=== PATIENT | female | born 1930 | race Caucasian/White ===

== ENCOUNTER 2017-12-21 14:31 | Inpatient (IN) | payer OTHER ==
[~2017-12-21] VITALS: Ht 167.6 cm; Wt 77.2 kg
[~2017-12-21 14:31] MED LIST: BACOO OS; HIB240 TP
[2017-12-21 16:15] LABS: BASOPHIL % 0.2 % (0-2); PLATELET COUNT 353 x10^3mcL (130-400)
[2017-12-21 16:16] LABS: RED CELL DISTRIBUTION WIDTH 19.8 % (11.5-14.5)
[2017-12-21 16:27] LABS: ALKALINE PHOSPHATASE 133 U/L (46-116); ALT/SGPT 96 U/L (14-59); AST/SGOT 50 U/L (15-37); BILIRUBIN TOTAL 0.98 mg/dL (0.20-1.00); CALCIUM 8.5 mg/dL (8.5-10.1); CARBON DIOXIDE 14.1 mmol/L (21-32); CHLORIDE SERUM 107 mmol/L (98-107); GLUCOSE SERUM 139 mg/dL (74-106); MAGNESIUM 2.8 mg/dL (1.8-2.4); PHOSPHOROUS 7.6 mg/dL (2.5-4.9); POTASSIUM SERUM 4.5 mmol/L (3.5-5.1); SODIUM SERUM 141 mmol/L (136-145); TOTAL PROTEIN, SERUM 7.1 g/dL (6.4-8.2)
[2017-12-21 16:28] LABS: ALBUMIN 2.8 g/dL (3.4-5.0); CHOLESTEROL 113 mg/dL (<200); HDL CHOLESTEROL 27 mg/dL (40-60)
[2017-12-21 16:33] LABS: CREATININE SERUM 4.3 mg/dL (0.6-1.0)
[2017-12-21 16:47] LABS: microscopic required? NO
[2017-12-21] MEDS ORDERED: NOR10T (16:47)
[2017-12-21] MEDS ORDERED: ZOF4 (16:47)
[2017-12-21 17:07] LABS: CHOLESTEROL/HDL RATIO 4.3
[2017-12-21 17:13] LABS: urine erythrocyte NEGATIVE (NEGATIVE)
[2017-12-21 17:15] LABS: T3 TOTAL 0.27 ng/mL
[2017-12-21 17:16] LABS: FREE T4 0.69 ng/dL (0.76-1.46)
[2017-12-21 17:17] LABS: FREE THYROXINE INDEX 1.1 ug/dL (1.4-4.5); T4(THYROXINE) 2.8 ug/dL (4.7-13.3)
[2017-12-21 18:29] VITALS: BP 143/85
[2017-12-21 19:20] VITALS: BP 117/75
[2017-12-21] MEDS ORDERED: ATIVAN0.5 M1 PO (19:34)
[2017-12-21] MEDS ORDERED: LASIX20 MG PO (19:34)
[2017-12-21] MEDS ORDERED: SYNTHROID0.075 MG PO (19:35)
[2017-12-21] MEDS ORDERED: LIPITOR20 MG PO (19:35)
[2017-12-21] MEDS ORDERED: LEXAPRO10 MG PO (19:35)
[2017-12-21 20:20] VITALS: BP 117/75
[2017-12-21 23:47] VITALS: BP 114/73
[2017-12-22 00:56] LABS: CARBON DIOXIDE 17.6 mmol/L (21-32); CHLORIDE SERUM 108 mmol/L (98-107); GLUCOSE SERUM 124 mg/dL (74-106); PHOSPHOROUS 7.1 mg/dL (2.5-4.9); SODIUM SERUM 142 mmol/L (136-145)
[2017-12-22 03:51] VITALS: BP 93/68
[2017-12-22 06:06] LABS: BASOPHIL % 0.4 % (0-2); PLATELET COUNT 275 x10^3mcL (130-400)
[2017-12-22 06:10] LABS: RED CELL DISTRIBUTION WIDTH 19.8 % (11.5-14.5)
[2017-12-22 06:15] LABS: CALCIUM 8.1 mg/dL (8.5-10.1); CARBON DIOXIDE 16.1 mmol/L (21-32); CHLORIDE SERUM 108 mmol/L (98-107); CREATININE SERUM 3.7 mg/dL (0.6-1.0); GLUCOSE SERUM 92 mg/dL (74-106); MAGNESIUM 2.4 mg/dL (1.8-2.4); PHOSPHOROUS 6.8 mg/dL (2.5-4.9); POTASSIUM SERUM 4.9 mmol/L (3.5-5.1); SODIUM SERUM 134 mmol/L (136-145)
[2017-12-22 07:30] VITALS: BP 94/60
[2017-12-22 12:00] VITALS: BP 132/77
[2017-12-22 15:45] VITALS: BP 126/74
[2017-12-22 19:15] VITALS: BP 90/48
[2017-12-22 23:10] VITALS: BP 102/64
[2017-12-23 03:16] VITALS: BP 99/56
[2017-12-23 05:46] LABS: BASOPHIL % 0.2 % (0-2); PLATELET COUNT 247 x10^3mcL (130-400)
[2017-12-23 05:47] LABS: RED CELL DISTRIBUTION WIDTH 19.8 % (11.5-14.5)
[2017-12-23 06:03] LABS: CALCIUM 8.1 mg/dL (8.5-10.1); CARBON DIOXIDE 16.9 mmol/L (21-32); CHLORIDE SERUM 107 mmol/L (98-107); CREATININE SERUM 3.4 mg/dL (0.6-1.0); GLUCOSE SERUM 90 mg/dL (74-106); MAGNESIUM 2.5 mg/dL (1.8-2.4); PHOSPHOROUS 6.3 mg/dL (2.5-4.9); POTASSIUM SERUM 4.4 mmol/L (3.5-5.1); SODIUM SERUM 140 mmol/L (136-145)
[2017-12-23 08:00] VITALS: BP 108/65
[2017-12-23 11:58] VITALS: BP 107/67
[2017-12-23 15:59] VITALS: BP 113/81
[2017-12-23 20:00] VITALS: BP 93/56
[2017-12-24 00:07] VITALS: BP 99/69
[2017-12-24 04:00] VITALS: BP 111/67
[2017-12-24 05:39] LABS: BASOPHIL % 0.7 % (0-2); PLATELET COUNT 238 x10^3mcL (130-400)
[2017-12-24 05:40] LABS: RED CELL DISTRIBUTION WIDTH 19.9 % (11.5-14.5)
[2017-12-24 05:47] LABS: CALCIUM 8.3 mg/dL (8.5-10.1); CARBON DIOXIDE 17.7 mmol/L (21-32); CHLORIDE SERUM 106 mmol/L (98-107); GLUCOSE SERUM 81 mg/dL (74-106); MAGNESIUM 2.4 mg/dL (1.8-2.4); PHOSPHOROUS 5.5 mg/dL (2.5-4.9); POTASSIUM SERUM 5.5 mmol/L (3.5-5.1); SODIUM SERUM 138 mmol/L (136-145)
[2017-12-24 07:50] VITALS: BP 101/62
[2017-12-24 08:25] VITALS: Ht 167.6 cm; Wt 77.2 kg
[2017-12-24 11:47] VITALS: BP 108/67
[2017-12-24] MEDS ORDERED: LEVAQUIN750 MG PO (16:25)
[2017-12-24] MEDS ORDERED: LAC PO (16:26)
[2017-12-24] MEDS ORDERED: CLINDAMYCIN HC300 MG PO (16:26)
[2017-12-24] MEDS ORDERED: COR200 PO (16:27)
[2017-12-24] MEDS ORDERED: ELIQUIS2.5 MG PO (16:27)
[2017-12-24] MEDS ORDERED: DIG125 PO (16:28)
[2017-12-24] MEDS ORDERED: LOP50 PO ×2 (16:30→17:38)
[2017-12-24] MEDS ORDERED: XARELTO15 M1 PO (17:37)
[2017-12-24 17:38] VITALS: BP 104/54
[2017-12-24] MEDS ORDERED: KEFLEX250 M1 (17:38)
[2017-12-24] MEDS ORDERED: ATIVAN0.5 M1 (17:38)
== END 2017-12-24 18:24 | DRG 177 ==
LOC: ED 14:31 → IC 16:32 → DU 16:32 → IC 19:10
PROVIDERS: Emergency Medicine; Family Medicine
DX: J69.0 Pneumonitis due to inhalation of food and vomit (principal); I50.43 Acute on chronic combined systolic (congestive) and diastolic (congestive) heart failure; N17.0 Acute kidney failure with tubular necrosis; E43 Unspecified severe protein-calorie malnutrition; J96.01 Acute respiratory failure with hypoxia; J44.9 Chronic obstructive pulmonary disease, unspecified; R73.03 Prediabetes; I48.0 Paroxysmal atrial fibrillation; E78.5 Hyperlipidemia, unspecified; E83.41 Hypermagnesemia; E86.0 Dehydration; I34.0 Nonrheumatic mitral (valve) insufficiency; I36.1 Nonrheumatic tricuspid (valve) insufficiency; E03.9 Hypothyroidism, unspecified; E83.39 Other disorders of phosphorus metabolism; F32.9 Major depressive disorder, single episode, unspecified; R29.6 Repeated falls; Z99.81 Dependence on supplemental oxygen; Z68.27 Body mass index [BMI] 27.0-27.9, adult; Z85.3 Personal history of malignant neoplasm of breast; Z95.810 Presence of automatic (implantable) cardiac defibrillator
CPT/HCPCS: 36600; 83880; 84439; 97110-GP; 97116-GP; 97530-GP; J0282; J1644; J1940; J1956; J2270; J3490; J7030; J7040; J7620; Q0092

== ENCOUNTER 2019-03-23 03:56 | Inpatient (IN) | payer OTHER, MEDICAID ==
[~2019-03-23] VITALS: Ht 165.1 cm; Wt 71.0 kg
[~2019-03-23 03:56] MED LIST changes: +ATIVAN0.5 M1; +ATIVAN0.5 M1 PO; +CLINDAMYCIN HC300 MG PO; +COR200 PO; +DIG125 PO; +ELIQUIS2.5 MG PO; +KEFLEX250 M1; +LAC PO; +LASIX20 MG PO; +LEVAQUIN750 MG PO; +LEXAPRO10 MG PO; +LIPITOR20 MG PO; +LOP50 PO; +NOR10T; +SYNTHROID0.075 MG PO; +XARELTO15 M1 PO; +ZOF4
--- NOTE | 2019-03-23 04:01 | NUR ---
PT BIB [facility] FOR HOME WITH C/O SOB THAT STARTED APPROX 4 DAYS AGO. PER MEDICS PT O2 SAT ON SCENE IN THE LOW 80'S AND PT WAS STARTED ON 15L/MIN OF VIA NON-REBREATHER. PER MEDICS PT EKG SHOWED AFIB WITH RVR AT A RATE IN THE 150'S. MEDICS ALSO REPORT HYPOTENSION ON SCENE. UPON ARRIVAL TO ED PT AWAKE AND A/OX4. PT COMPLAINING OF A TIGHTNESS IN HER CHEST AND SOB. PT REPORTS A COUGH FOR APPROX 4 DAYS. PT DENIES FEVERS. PT LUNG SOUNDS CLEAR IN ALL PATEL WITH AUSCULATION. PT PLACED ON FULL CUT OUT MARKER. PT HYPOTENSIVE WITH A HR IN THE 150'S, PT IN AFIB. PT KEPT ON 15L/MIN OF O2 VIA NON-REBREATHER. MD MARLEY AT BEDSIDE FOR MSE.
--- NOTE | 2019-03-23 04:10 | NUR ---
ONE UNSUCCESSFUL IV START BY MYSELF MALINDA SUNSHINE, AND ONE UNSUCCESSFUL IV START BY MALINDA JENKINS.
--- NOTE | 2019-03-23 04:21 | NUR ---
MD MARLEY AT BEDSIDE TO INSERT CL, PT GAVE VERBAL OK TO INSERT CL. LAB AT BEDSIDE TO RECIEVE BLOOD DRAW.
--- NOTE | 2019-03-23 04:36 | NUR ---
PER MD MARLEY GIVE PT A 500ML BOLUS.
--- NOTE | 2019-03-23 04:46 | NUR ---
PT STRAIGHT CATH PER MD MARLEY, MALINDA PHILLIPS AT BEDSIDE TO ASSIT. PT TOERATED WELL.
[2019-03-23 04:53] LABS: PLATELET COUNT 395 x10^3mcL (130-400)
[2019-03-23 04:57] LABS: RED CELL DISTRIBUTION WIDTH 24.9 % (11.5-14.5)
--- NOTE | 2019-03-23 05:00 | NUR ---
PER MD MARLEY GIVE PT ANOTHER 500ML BOLUS FOR HER HYOPTENSION.
--- NOTE | 2019-03-23 05:02 | NUR ---
MD MARLEY AT BEDSIDE TO INFORM PT THAT WE NEED TO PREFORM SYNCRONIZED CARDIOVERSION TO STABLIZE HER VITAL SIGNS. PT REFUSING CARDIOVERSION AT THIS TIME STATING SHE HAS HAD IT DONE BEFORE AND IT HURTS.
[2019-03-23 05:05] LABS: MONOCYTE 3 % (0-7); SEGMENTED NEUTROPHILS 90 % (37-75)
[2019-03-23 05:08] LABS: acanthocyte (spur cell) 2+; rbc morphology (normal/abnorm) ABNORMAL (NORMAL)
[2019-03-23 05:09] LABS: PLATELET MORPHOLOGY PLATELETS NORMAL; schistocyte (helmet cell) 1+
[2019-03-23 05:16] LABS: ALKALINE PHOSPHATASE 142 U/L (46-116); ALT/SGPT 31 U/L (14-59); AST/SGOT 58 U/L (15-37); BILIRUBIN TOTAL 0.8 mg/dL (0.20-1.00); CALCIUM 7.2 mg/dL (8.5-10.1); CARBON DIOXIDE 15.7 mmol/L (21-32); CHLORIDE SERUM 101 mmol/L (98-107); GLUCOSE SERUM 106 mg/dL (74-106); POTASSIUM SERUM 4.1 mmol/L (3.5-5.1); SODIUM SERUM 138 mmol/L (136-145); TOTAL PROTEIN, SERUM 6.8 g/dL (6.4-8.2)
--- NOTE | 2019-03-23 05:20 | NUR ---
PT ACCEPTING CARDIOVERSION AT THIS TIME, MD MARLEY MADE AWARE. CRASH CART BROUGHT TO BEDSIDE AND PT PLACED ON MONITOR FOR CARDIOVERSION. PT A/O X4.
--- NOTE | 2019-03-23 05:27 | NUR ---
MD MARLEY AT BEDSIDE, SYNCRONIZED SHOCK DELIVERED AT THIS TIME AT 100J. PT RHYTHM RECORDED AND PLACED IN CHART. PT HR RANGING FROM 90'S TO 144'S.
[2019-03-23 05:28] LABS: ALBUMIN 2.3 g/dL (3.4-5.0)
[2019-03-23 05:29] LABS: CREATININE SERUM 6.2 mg/dL (0.6-1.0)
--- NOTE | 2019-03-23 06:10 | NUR ---
REPORT GIVEN TO NICHO PETTY TO ASSUME CARE OF PT.
--- NOTE | 2019-03-23 06:30 | NUR ---
PT TRANSFERRED FROM ER VIA GURNEY ACCOMPANIED BY RN AND EMT. PT TRANSFERRED TO ICU BED WITH FULL ASSIST. PLACED ON FULL CM WITH VITAL SIGNS: BP 129/42 MAP 89, TEMP 95.4 (RECTAL), HR 93, RR21, O2 SAT 92%. RECTAL TEMP AND GAYMAR PLACED. PT APPEARS LETHARGIC BUT EASILY AROUSABLE. ABLE TO FOLLOW COMMANDS. GEN WEAKNESS NOTED. PT IS A/O X4, SPEECH CLEAR AND APPROPRIATE BUT SLOW TO RESPOND. PT ON NON-REBREATHER 15LPM. CHEST RISE EQUAL AND SYMMETRICAL. R FEMORAL CVC IN PLACE. LEVOPHED INFUSING @ 6 MCG/MIN. LEVAQUIN INFUSING WITH 30ML LEFT. VANCO IV TO BE STARTED AFTER LEVAQUIN IS COMPLETE, ORDERED BY ER DR. MOLINA RELAY TO AM NURSE.
--- NOTE | 2019-03-23 07:15 | NUR ---
DR LONGORIA AT BEDSIDE TO ASSESS PATIENT. DR LONGORIA DISCUSSED POC AND CODE STATUS. PATIENT ALERT AND ORIENTED X 4. PATIENT STATED THAT SHE DOES NOT AGRESSIVE CARE AND WANTS TO REMAIN DNR STATUS. PATIENT'S BP AT THIS TIME 136/58, MAP 92. LEVOPHED TITRATED FROM 6MCG TO 3 MCG. WILL MONITOR PATIENT CLOSELY.
[2019-03-23 07:19] LABS: MAGNESIUM 2.4 mg/dL (1.8-2.4)
[2019-03-23 07:21] LABS: CHOLESTEROL/HDL RATIO 5.9
--- NOTE | 2019-03-23 07:21 | NUR ---
REPORT GIVEN TO RACHAEL PETTY TO ASSUME CARE.
--- NOTE | 2019-03-23 07:25 | NUR ---
THE PATIENT LETHARGIC, BUT ORIENTED TO PERSON, PLACE AND TIME WITH VERY SLOW SPEECH. PATIENT IS ABLE TO PROVIDE HISTORY AND MAKES NEEDS KNOWN. PATIENT IS ON NONREBREATHER MASK AND STATES HAVING EPISODES OF SHORTNESS OF BREATH. MILDLY LABORED BREATHING NOTED AT THIS TIME. PATIENT ALSO HAS SOME CONGESTED COUGH BUT NO SPUTUM NOTED. LEVOPHED DRIP AT 3MCG/MIN. IVF NS AT 100ML/HR. CVC TO RIGHT FEMORAL; 3 PORTS FLUSHED WELL. RECTAL TEMP VIA GAYMAR. WARM BLANKET COVERED THE PATIENT. CALL LIGHT WITHIN REACH. SIDE RAILS UP X3. BED IS AT LOWEST POSITION. ALARM IS ON.
[2019-03-23 07:27] LABS: microscopic required? NO
[2019-03-23 07:41] LABS: PHOSPHOROUS 9.2 mg/dL (2.5-4.9)
[2019-03-23 07:48] LABS: urine erythrocyte NEGATIVE (NEGATIVE)
[2019-03-23 07:54] LABS: T3 TOTAL 0.06 ng/mL
[2019-03-23 07:55] VITALS: BP 103/59
[2019-03-23 08:21] LABS: FREE T4 0.82 ng/dL (0.76-1.46)
[2019-03-23 08:59] LABS: FREE THYROXINE INDEX 1.5 ug/dL (1.4-4.5)
--- NOTE | 2019-03-23 09:40 | NUR ---
DR LOCO AND RESIDENTS AT BEDSIDE FOR MORNING ROUNDS. POC DISCUSSED BEDSIDE WITH PATIENT. ALL QUESTIONS AND CONCERNS ADDRESSED.
--- NOTE | 2019-03-23 11:50 | NUR ---
DR. BRADFORD IS AT BEDSIDE SEEING THE PATIENT.
--- NOTE | 2019-03-23 11:55 | NUR ---
WILLIS CATH INSERTED ORDERED; SCAN AMOUNT YELLOW URINE OUTPUT NOTED IN THE F/C TUBE. SWALLOW SCREEN IMPLEMENTED AT BEDSIDE: ICE CHIPS, JELLO, APPLESAUCE, PUDDING AND WATER. PATIENT DOES NOT DIFFICULTY SWALLOWING. DR. GONZALEZ WAS INFORMED.
[2019-03-23 12:10] VITALS: BP 103/57
[2019-03-23 13:01] VITALS: BP 103/57
--- NOTE | 2019-03-23 13:18 | NUR ---
DR. KEN WATSON IS AT BEDSIDE SEEING THE PATIENT.
--- NOTE | 2019-03-23 13:22 | NUR ---
DR WATSON AT BEDSIDE TO ASSESS PATIENT. POC DISCUSSED WITH PATIENT INCLUDING WHETHER PATIENT WANTED H.D. IF NECESSARY. PATIENT DECLINED HEMODIALYSIS AND AGREED TO MEDICATIONS ONLY TO IMPROVE RENAL FUNCTION. WILL ENDORSE TO PRIMARY RN KECIA.
--- NOTE | 2019-03-23 14:05 | NUR ---
THE BP 91/43 AND MAP 62; LEVOPHED IS TITRATED FROM 2MCG/MIN UP TO 3MCG/MIN.
[2019-03-23 16:00] VITALS: BP 99/58
--- NOTE | 2019-03-23 16:00 | NUR ---
THE PATIENT'S HEART RATES INCREASED UP TO 170S AND CHANGED TO SVT. DR. LONGORIA AND DR. GONZALEZ WERE NOTIFIED. AMIODARONE DRIP WAS ORDERED: AT 1550: AMIODARONE BOLUS 150MG IV ADMINISTERED TO THE PATIENT. AT 1600: AMIODARONE DRIP WAS INITIATED AT 1MG/MIN PER PROTOCOL.
--- NOTE | 2019-03-23 17:02 | NUR ---
BP 106/57 AND MAP 81; LEVOPHED IS TITRATED FROM 3MCG/MIN DOWN TO 2MCG/MIN.
--- NOTE | 2019-03-23 18:49 | NUR ---
ISOGEL MATTRESS SET UP FOR THE PATIENT. GOWN AND LINEN CHANGED. PATIENT HAS EPISODES OF SHORTNESS OF BREATH DURING THE SHIFT. PATIENT IS ON OXYGEN AT 2L/MIN VIA NASAL CANNULA WITH O2 SAT >95%. PATIENT DOES NOT TOLERATED WELL WITH MECHANICAL SOFT CHOPPED DIET DUE TO DECREASED APPETITE. AMIODARONE DRIP AT 1MG/MIN AND LEVPHED DRIP AT 2MCG/MIN. WILL ENDORSE CARE TO ONCOMING RN.
--- NOTE | 2019-03-23 19:07 | NUR ---
RECEIVED REPORT FROM KECIA PETTY. WILL RESUME CARE.
[2019-03-23 19:20] VITALS: BP 88/54
--- NOTE | 2019-03-23 19:20 | NUR ---
RECEIVED PT AAOX4. PT LETHARGIC. ABLE TO MAKE NEEDS KNOWN AND FOLLOW COMMANDS. BREATHING EVEN. ON 2L VIA NC, O2SAT 100%. LUNG SOUNDS DIMINIASHED BILATERALLY. PT STATES NO CHEST PAIN AT THIS TIME. S1S2 AUSCULTATED WITH NO MURMURS NOTED. ON LEVOPHED GTT AT 2MCG/MIN AND AMIODARONE 1MG/MIN INFUSINF TO R CVC FEMORAL IV SITE, DRESSING CDI. NO DRAINAGE, SWELLING, OR REDNESS NOTED TO EENT. CAP REFILL <3 SEC. PULSES MODERATE TO BUE AND WEAK TO BLE. ABDOMEN ROUND, NONTENDER. BS ACTIVE X4. NO N/V. NO BM AT THIS TIME. WILLIS CATHETER IN PLACE DRAINING VIA GRAVITY YELLOW URINE. GENERALIZED WEAKNESS. NO CONTRACTURES NOTED. PT NEEDS ASSISTANCE WITH TURNING Q2HRS. SKIN HAS SCATTERED SCABS AND ECCHYMOSIS ALL OVER BODY. BED IN LOW POSITION. CALL LIGHT WITHIN REACH. WILL CONTINUE TO MONITOR.
--- NOTE | 2019-03-23 22:00 | NUR ---
AMIODARONE GTT TITRATED FROM 1MG/MIN TO 0.5MG/MG PER MD ORDERS.
[2019-03-23 23:10] VITALS: BP 91/57
[2019-03-24 03:19] VITALS: BP 104/55
--- NOTE | 2019-03-24 04:20 | NUR ---
PT CLEANED. WILLIS CATHETER CARE PROVIDED. ALL LINENS AND GOWN CHANGED.
--- NOTE | 2019-03-24 04:40 | NUR ---
PAINT STRIPPER AT BEDSIDE FOR BLOOD DRAW.
[2019-03-24 05:11] LABS: BASOPHIL % 0.6 % (0-2); PLATELET COUNT 389 x10^3mcL (130-400)
[2019-03-24 05:13] LABS: RED CELL DISTRIBUTION WIDTH 24.5 % (11.5-14.5)
[2019-03-24 05:21] LABS: acanthocyte (spur cell) 2+; rbc morphology (normal/abnorm) ABNORMAL (NORMAL); schistocyte (helmet cell) 1+
[2019-03-24 05:23] LABS: ALKALINE PHOSPHATASE 132 U/L (46-116); ALT/SGPT 27 U/L (14-59); AST/SGOT 47 U/L (15-37); BILIRUBIN TOTAL 0.8 mg/dL (0.20-1.00); CARBON DIOXIDE 13.7 mmol/L (21-32); CHLORIDE SERUM 101 mmol/L (98-107); GLUCOSE SERUM 115 mg/dL (74-106); MAGNESIUM 2.1 mg/dL (1.8-2.4); PHOSPHOROUS 8.4 mg/dL (2.5-4.9); POTASSIUM SERUM 4.1 mmol/L (3.5-5.1); SODIUM SERUM 136 mmol/L (136-145); TOTAL PROTEIN, SERUM 6.4 g/dL (6.4-8.2)
[2019-03-24 05:27] LABS: ALBUMIN 2.4 g/dL (3.4-5.0)
[2019-03-24 05:28] LABS: CREATININE SERUM 5.7 mg/dL (0.6-1.0)
[2019-03-24 05:29] LABS: IRON 10 ug/dL (50-170); TOTAL IRON BINDING CAPACITY 205 ug/dL (250-450)
--- NOTE | 2019-03-24 05:50 | NUR ---
DR. GONZALEZ AT BEDSIDE ASSESSING PT. UPDATES PROVIDED. MD MADE AWARE OF LAB VALUES ALBUMIN 2.4, PHOS 8.4, IRON 10.
--- NOTE | 2019-03-24 06:40 | NUR ---
DR. WATSON AT BEDSIDE ASSESSING PT. UPDATES PROVIDED.
--- NOTE | 2019-03-24 07:30 | NUR ---
RECEIVED PT'S REPORT FROM LEAVING NURSE. PT RESTING ON BED, EASILY AROUSED BY VERBAL STIMULI. PT BREATHING ON O2 2L VIA NC, EVEN, SHALLOW NOTED. WILLIS IN PLACE, DRAINING VIA GRAVITY, SMALL AMOUNT URINE, [place]. FEMORAL CENTRAL LINE, DRESSING INTACT. PT ON AMIODORANE AT 0.5MG /MIN, LEVOPHED AT 1 MCG/MIN. WILL CONTINUE TO MONITOR.
[2019-03-24 08:00] VITALS: BP 119/91
--- NOTE | 2019-03-24 08:52 | NUR ---
SCREEN FOR LOW LIU SCALE AT RISK CONTINUE PRESSURE ULCER PREVENTION INTERVENTIONS: -TURN AND REPOSITION PATIENT Q 2H OFFLOAD LEFT AND RIGHT HIPS -ASSESS AND MONITOR SKIN CONDITION DURING POSITION CHANGE -OFFLOAD BILATERAL HEELS BY PLACING PILLOWS UNDER CALVES AT ALL TIMES, UNLESS OTHERWISE CONTRAINDICATED -PRESSURE REDISTRIBUTION SURFACE THERAPY -KEEP SKIN CLEAN AND DRY AT ALL TIMES.
--- NOTE | 2019-03-24 09:10 | NUR ---
PT'S BP 117/66 (83), HR 105 BPM. MIDODRINE 10MG GIVEN, HOLD LEVOPHED DRIP AT THIS TIME. WILL CONTINUE TO MONITOR.
--- NOTE | 2019-03-24 10:18 | NUR ---
TALKED TO PT'S REGULATORY SUBMISSIONS SPECIALIST KIKO MOLINA ([phone]). SHE MENTIONED PT HAD PACE MAKER DEFIBRILATOR IN PLANTED IN 2014, BUT MANUFACTURE UNKNOWN. PT'S CONDITION BRIEFLY UPDATED.
--- NOTE | 2019-03-24 10:21 | NUR ---
DR. LOCO MADE MORNING ROUND WITH MEDICAL TEAM. SENIOR ELECTRONICS ENGINEER AT BED SIDE. PT IS AWAKE,AND AWARE ABOUT TREATMENT PLAN.
--- NOTE | 2019-03-24 11:20 | NUR ---
PT'S SON OUMOU CALLED AND TALKED TO PT. PT'S CONDITION UPDATED.
--- NOTE | 2019-03-24 11:40 | NUR ---
DR CAR AT BEDSIDE TO ASSESS PATIENT. UPDATES PROVIDED BY NURSING WITH POC DISCUSSED.
[2019-03-24 12:00] VITALS: BP 114/60
--- NOTE | 2019-03-24 13:50 | NUR ---
1. Recommend Renal (mechanically soft- chopped) diet. 2. Recommend adding the fluid restriction in the diet order. Discussed recommendations with Dr. Albrecht. Patient is allergic to niacin in food, so to avoid foods that are enriched with niacin like breads and food high in niacin. test clerk Lily has been informed. Foods like peanuts, tuna, chicken that are high in niacin have been added to allergies list.
--- NOTE | 2019-03-24 13:50 | NUR ---
Initial Nutrition Assessment: IC06 JULIOCESAR [place] HR Dx: PNA, renal failure, septic shock PMHx: COPD, CHF, A fib PSHx: Mastectomy Labs: BG 115H, BUN 113H, CREAT 5.7H, ALB 2.4L, AST 47H, WBC 12.5H Meds: Levaquin, morphine, phoslo, vancomycin, zofran Diet: Mechanically soft- chopped PO Intake: (03/23) dinner 30%, lunch 35% Ht: 165.1 cm (65") Wt: 70 kg (154#) BMI: 25.7 kg/m2 Bed scale: 70 kg IBW: 125# (57 kg) %IBW: 123 UBW: unable to access Age: 88/F Food Allergies: niacin Skin: scattered ecchymosis STEFAN extremities Chris: 13 Edema: +2 BLE GI: Last BM: unknown per RN Per H&P, Pt is a 88 years old female with PMH of COPD, CHF, A fib who brought to ER due to acute SOB x [address]N Visit (03/24): Patient was sleeping. Per RN Audra, patient has poor PO and she just drank some juice. Patient has refused to have dialysis. Problem with: N/V/D/C: none per RN Problems with: Chewing/Swallowing: yes, on MS diet Current appetite: poor Recent wt change: unable to access %wt change: n/a Vitamin/Supplement use: unable to access Special diet at home: unable to access Physical activity: unable to access Nutrition education given: not possible at this time Food-drug interactions: none Education given: n/a Estimated Nutritional Needs Based on current body weight 70 kg Energy: 0208-9225 kcal/d (25-30 kcal/kg) Protein: 56-70 g/d (0.8-1.0 g/kg) - renal failure Fluid: 2637-8063 ml/d (1 ml/kcal) or per doctor Nutrition Diagnosis 1. Inadequate oral intake related to poor appetite as evidenced by documented PO <75%. 2. Altered nutrition related lab values related to renal failure as evidenced by BUN :113, CREAT 5.7 Intervention 1. Recommend Renal (mechanically soft- chopped) diet. 2. Recommend adding the fluid restriction in the diet order. Discussed recommendations with Dr. Albrecht. Patient is allergic to niacin in food, so to avoid foods that are enriched with niacin like breads and food high in niacin. print shop chief clerk Pearl has been informed. Foods like peanuts, tuna, chicken that are high in niacin have been added to allergies list. Monitor/Evaluate Goal: PO intake at least 75% of estimated needs Monitor: PO intake, Labs, GI function F/U in 2-3 days as high risk 03/26-
--- NOTE | 2019-03-24 13:50 | NUR ---
PT'S FREIGHT CAR LOADER KIKO STATED PT IS ALLERGIC TO NIACIN BOTH IN FOOD AND MEDICATION, WHICH CAUSE RASH. ALSO PT IS ALLERGIC TO MORPHINE, WHICH CAUSE PT'S HALLUCINATION. MADE DR. GONZALEZ AWARE.
[2019-03-24 16:00] VITALS: BP 119/61
--- NOTE | 2019-03-24 16:30 | NUR ---
PT REFUSED TO TAKE BP, SCREAMING "PAIN,PAIN, NO MORE CHECK BLOOD PRESSURE." STOP BP CHECK EVERY 30MIN, WILL TRY AGAIN.
--- NOTE | 2019-03-24 17:53 | NUR ---
SPOKE WITH PATIENT REGARDING WEARING AUTOMATIC BLOOD PRESSURE CUFF. PATIENT REFUSING TO WEAR STATING "IT HURTS." EDUCATION PROVIDED REGARDING THE NEED FOR CLOSE MONITORING AND PATIENT CONTINUED TO REFUSE. FURTHER EDUCATION PROVIDED AND PATIENT STATED THAT SHE WOULD ONLY PUT IT ON EVERY ONCE IN A WHILE. DR LONGORIA MADE AWARE.
--- NOTE | 2019-03-24 19:09 | NUR ---
DR. BRADFORD AT BEDSIDE ASSESSED PT. STOP AMIODARONE PER DR. BRADFORD'S ORDER. MADE DR. BRADFORD PT HAS HOME MED XAR[facility] BUT NOT BEING SCHEDULED. ENDORSED PT'S CARE TO COMING NURSE.
--- NOTE | 2019-03-24 19:30 | NUR ---
PT REFUSING TO HAVE HER BP TAKEN. WILL TRY AGAIN LATER INTO THE SHIFT.
--- NOTE | 2019-03-24 19:30 | NUR ---
RECEIVED REPORT FROM MALINDA CANO. PT IS ALERT AND ORIENTED X2. PT IS BREATHING EQUAL BUT LABORED ON 2L NC SATURATING AT 98%. S1 S2 HEART SOUNDS AUSCULTATED. LUNG SOUNDS CLEAR TO BILATERAL UPPER LOBES, DIMINISHED TO BILATERAL LOWER LOBES. CAP REFILL <3 SECS X4. SKIN IS WARM AND PALE. PULSES MODERATE X2 BUE, WEAK X2 BLE. RIGHT FEMORAL CVC PATENT, DRESSING CDI. 1/2 NS WITH 1 AMP BICARB INFUSING AT 50 ML/HR. WILLIS DRAINING VIA GRAVITY, URINE OUTPUT IS POOR. ABD IS SOFT AND ROUNDED WITH ACTIVE BOWEL SOUNDS X4Q. SCABBING AND ECCHYMOSIS TO BUE, AND REDNESS TO PERINEAL AREA. ALL QUESTIONS AND CONCERNS ANSWERED.
--- NOTE | 2019-03-24 21:35 | NUR ---
DR. MAHMOOD AT BEDSIDE FOR UPDATES. ALL QUESTIONS AND CONCERNS ANSWERED. NO CHANGES MADE.
--- NOTE | 2019-03-24 23:00 | NUR ---
PT CONTINUING TO REFUSE TO HAVE HER BP READ. PT EDUCATED ON THE RISKS OF NOT KNOWING HER BP. PT CONTINUE TO REFUSE.
--- NOTE | 2019-03-25 02:43 | NUR ---
PT CONTINUING TO REFUSE BP READING STATING THAT IT "HURTS TOO MUCH". PT EDUCATED ON THE IMPORTANCE OF RECORDING VITAL SIGNS.
--- NOTE | 2019-03-25 04:51 | NUR ---
PT PROVIDED WITH FULL BED BATH AND LINEN CHANGE. PT TOLERATED WELL.
[2019-03-25 05:26] LABS: PLATELET COUNT 326 x10^3mcL (130-400)
[2019-03-25 05:28] LABS: RED CELL DISTRIBUTION WIDTH 25.4 % (11.5-14.5)
[2019-03-25 05:51] LABS: CALCIUM 7.2 mg/dL (8.5-10.1); CARBON DIOXIDE 18.2 mmol/L (21-32); CHLORIDE SERUM 101 mmol/L (98-107); GLUCOSE SERUM 89 mg/dL (74-106); PHOSPHOROUS 7.1 mg/dL (2.5-4.9); SODIUM SERUM 138 mmol/L (136-145)
[2019-03-25 06:01] LABS: CREATININE SERUM 5.9 mg/dL (0.6-1.0)
--- NOTE | 2019-03-25 06:14 | NUR ---
AT BEDSIDE FOR UPDATES. ALL QUESTIONS AND CONCERNS ANSWERED.
[2019-03-25 06:16] LABS: SEGMENTED NEUTROPHILS 97 % (37-75)
[2019-03-25 06:17] LABS: ATYPICAL LYMPH 0 %; BAND NEUTROPHIL 0 % (0-10); BASOPHIL 0 % (0-2); MONOCYTE 2 % (0-7)
[2019-03-25 06:26] LABS: rbc morphology (normal/abnorm) ABNORMAL (NORMAL)
--- NOTE | 2019-03-25 06:55 | NUR ---
DR. JONO WATSON AT BEDSIDE FOR UPDATES.ALL QUESTIONS AND CONCERNS ANSWERED. ACCORDING TO , D/C THE FLUIDS. WILL FOLLOW THROUGH WITH ORDER.
[2019-03-25 09:02] VITALS: Ht 165.1 cm; Wt 71.0 kg
--- NOTE | 2019-03-25 09:56 | NUR ---
PATIENT ROUNDS WITH DR. LOCO AND RESIDENTS. CHARGE NURSE AND PRIMARY NURSE AT BEDSIDE. UPDATES PROVIDED AND POC DISCUSSED. WILL CONTINUE TO MONITOR.
--- NOTE | 2019-03-25 09:57 | NUR ---
DR. LOCO AND LISA AT BEDSIDE. ALL UPDATES GIVEN, SUCH PATIENTS HEART RATE BEING 140-150'S. NO NEW ORDERS AT THIS TIME. DR. GONZALEZ AND CLAUDY EDUCATED PATIENT ON IMPORTANCE OF BLOOD PRESSURE CHECKS. PATIENT CONTINUES TO REFUSE AT THIS TIME. WILL CONTINUE TO MONITOR.
--- NOTE | 2019-03-25 10:50 | NUR ---
DR GONZALEZ PAGED AND ASKED WHAT HE WOULD LIKE TO DO FOR HEART RATE. PER DR. GONZALEZ WE NEED TO FIND OUT WHAT PATIENTS BLOOD PRESSURE IS. WILL ATTEMPT TO CHECK PATIENTS B/P AT THIS TIME.
--- NOTE | 2019-03-25 11:04 | NUR ---
MANUALLY CHECKED PATIENTS B/P AT THIS TIME WITH 2 CONSECUTIVE ATTEMPTS OF 130/90. DR. GONZALEZ NOTIFIED OF THIS READING. WILL AWAIT ORDERS.
[2019-03-25 11:07] VITALS: BP 130/90
--- NOTE | 2019-03-25 11:10 | NUR ---
DR. JOLLY MADE AWARE PATIENT IS STILL A. FIB WITH RVR WITH HR FLUCTUATING BETWEEN 130-150'S. MANUAL NIBP 130/90. WILL AWAIT ORDERS.
--- NOTE | 2019-03-25 15:10 | NUR ---
DR. GONZALEZ PAGED AT THIS TIME REGARDING FOLLOW UP FOR PATIENTS HR.
--- NOTE | 2019-03-25 15:18 | NUR ---
DR. GONZALEZ CALLED BACK AT THIS TIME AND STS THAT HE SPOKE WITH DR BRADFORD, AND TO AWAIT ORDERS FROM DR BRADFORD, HE WILL BE HERE THIS EVENING. WILL AWAIT DR BRADFORD AT THIS TIME.
--- NOTE | 2019-03-25 16:01 | NUR ---
PHYSICAL THERAPY AT BEDSIDE, STS THAT PT WAS ABLE TON GET UP IN BED WITH FULL ASSISTANCE NEEDED. PT STABLE AT THIS TIME, WILL CONTINUE TO MONITOR.
--- NOTE | 2019-03-25 16:37 | NUR ---
DR. BRADFORD AT BEDSIDE, ALL UPDATES PROVIDED. WILL AWAIT ORDERS.
--- NOTE | 2019-03-25 16:52 | NUR ---
DR. BRADFORD MADE AWARE THAT PATIENTS DIG LEVEL IS 2.5. HE STS THAT HE IS AWARE BUT IT IS OK TO GIVE AND WILL ORDER. WILL AWAIT ORDERS AT THIS TIME.
--- NOTE | 2019-03-25 17:36 | NUR ---
PATIENT STATED THAT IT WAS OK TO CHECK THEIR BLOOD PRESSURE AT THIS TIME. AUTOMATIC BLOOD PRESSURE CHECKED WITH INACCURATE READING. MANUAL CHECKED AND RECEIVED: 120/75, WILL GIVE MEDICATIONS AT THIS TIME, SEE EMAR.
--- NOTE | 2019-03-25 18:40 | NUR ---
PATIENT FREE OF DISTRESS AT THIS TIME. PATIENT STATES THAT HER LEGS ARE CRAMPING AND WOULD LIKE FOR THE LEG SEQUENTIAL DEVICE TO BE OFF AT THIS TIME. BLE SEQUENTIAL DEVICE REMOVED AT THIS TIME. WILL CONTINUE TO MONITOR.
--- NOTE | 2019-03-25 19:10 | NUR ---
REPORT GIVEN TO MALINDA JOHNSON. ALL QUESTIONS ANSWERED AT THIS TIME.
--- NOTE | 2019-03-25 19:11 | NUR ---
RECEIVED REPORT FROM AMINA PETTY. WILL RESUME CARE.
[2019-03-25 19:21] VITALS: BP 121/74
--- NOTE | 2019-03-25 19:21 | NUR ---
RECEIVED PT AAOX2 TO PERSON AND PLACE. SPEECH SLOW. PT ABLE TO FOLLOW COMMANDS AND MAKE NEEDS KNOWN. BREATHING E/U. LUNG SOUNDS HAVE CRACKLES TO BILATERAL UPPER LOBES AND DIMINISHED TO BASES. ON 2L NC, O2SAT 98%. S1S2 AUSCULTATED WITH NO MURMURS NOTED. PT STATES NO CHEST PAIN AT THIS TIME. A. FIB ON LOAN EXAMINER, HR 137. R FEMORAL CVC WNL, DRESSING CDI. CAP REFILL <3 SEC. PULSES WEAK TO BUE AND BLE. SKIN COOL TO BUE AND WARM TO BLE. ABDOMEN ROUND, NONTENDER. ON MECHANICAL SOFT, CHOPPED DIET. BS ACTIVE X 4. NO N/V. NO BM AT THIS TIME. WILLIS CATHETER IN PLACE DRAINING VIA GRAVITY YELLOW URINE. BED IN LOW POSITION. CALL LIGHT WITHIN REACH. WILL CONTINUE TO MONITOR.
[2019-03-25 23:01] VITALS: BP 145/55
--- NOTE | 2019-03-26 00:14 | NUR ---
DR. MAHMOOD AT BEDSIDE ASSESSING PT. UPDATES PROVIDED.
[2019-03-26 03:01] VITALS: BP 143/55
--- NOTE | 2019-03-26 04:40 | NUR ---
ANNABEL LEDESMA AT BEDSIDE FOR BLOOD DRAW.
[2019-03-26 05:41] LABS: BASOPHIL % 0.1 % (0-2); CALCIUM 7.5 mg/dL (8.5-10.1); CARBON DIOXIDE 21.2 mmol/L (21-32); CHLORIDE SERUM 105 mmol/L (98-107); GLUCOSE SERUM 77 mg/dL (74-106); MAGNESIUM 2.1 mg/dL (1.8-2.4); PHOSPHOROUS 6.7 mg/dL (2.5-4.9); PLATELET COUNT 308 x10^3mcL (130-400); POTASSIUM SERUM 3.5 mmol/L (3.5-5.1); SODIUM SERUM 141 mmol/L (136-145)
[2019-03-26 05:42] LABS: RED CELL DISTRIBUTION WIDTH 24.6 % (11.5-14.5)
[2019-03-26 05:43] LABS: CREATININE SERUM 5.7 mg/dL (0.6-1.0)
--- NOTE | 2019-03-26 05:48 | NUR ---
DR. GONZALEZ AT BEDSIDE ASSESSING PT. UPDATES PROVIDED.
[2019-03-26 06:04] LABS: acanthocyte (spur cell) 1+; rbc morphology (normal/abnorm) ABNORMAL (NORMAL)
--- NOTE | 2019-03-26 07:00 | NUR ---
GAVE REPORT TO AMINA PETTY. ALL QUESTIONS AND CONCERNS ADDRESSED.
--- NOTE | 2019-03-26 07:25 | NUR ---
PATIENT IN BED, BED TO THE LOWEST POSITION. PATIENT IS SLEEPING AT THIS TIME. THEORETICAL PHYSICIST IN PLACE, AFIB. PATIENT IS ON 2 L NASAL CANNULA. PATIENT IS BREATHING ADEQUATELY AND THERE ARE NO SIGNS OF RESPIRATORY DISTRESS. BLE LEG SEQUENTIAL DEVICES ARE NOTED. HEELS ARE OFF LOADED WITH PILLOWS, CALL LIGHT IS WITHIN REACH. PATIENT STABLE, WILL CONTINUE TO MONITOR.
[2019-03-26 07:47] VITALS: BP 137/60
--- NOTE | 2019-03-26 08:54 | NUR ---
PATIENT RESTING COMFORTABLY AT THIS TIME, FREE FROM ANY SIGNS OF DISTRESS. WILL CONTINUE TO MONITOR.
[2019-03-26 09:14] VITALS: BP 137/68
[2019-03-26 11:31] VITALS: BP 144/73
[2019-03-26 15:28] VITALS: BP 141/100
--- NOTE | 2019-03-26 16:21 | NUR ---
DR LAWRENCE AT BEDSIDE, ALL UPDATES GIVEN. NO NEW ORDERS AT THIS TIME. DR. LAWRENCE WENT OVER EXPLANATION OF DIALYSIS WITH PATIENT. PER PATIENT THEY STATE THAT THEY WOULD NOT WANT DIALYSIS. PATIENT STABLE, WILL CONTINUE TO MONITOR.
--- NOTE | 2019-03-26 18:15 | NUR ---
REPORT GIVEN TO MALINDA WILLARD AT THIS TIME. ALL QUESTIONS ANSWERED.
--- NOTE | 2019-03-26 18:33 | NUR ---
PATIENT TRANSFERRED UP TO 206 B AT THIS TIME, VIA WHEELCHAIR. PATIENTS EARRINGS TAKEN WITH PATIENT. PATIENT TAKEN VIA OXYGEN TANK. PATIENT STABLE AND FREE FROM ANY SIGNS OF DISTRESS. MALINDA WILLARD AT BEDSIDE. ALL QUESTIONS ANSWERED AT THIS TIME. PATIENTS CHART GIVEN TO MALINDA WILLARD AND TELE PLACE ON PATIENT.
--- NOTE | 2019-03-26 18:50 | NUR ---
RECEIVED PT FROM ICU. REPORT RECEIVED FROM OMKAR. ALERT TO SELF AND OTHERS. VERY WEAK. GENERALIZED WEAKNESS. MAX ASSIST WC TO BED. WILLIS DRAINING YELLOW CLOUDY URINE. ON VANCO AND LEVAQUIN IV ABX. PLACED ON 2L NC. LUNG SOUNDS CONGESTED. VERY DRY SKIN WITH SCATTERD SMALL SCABS ON LOWER EXTS MARY KATE. HOB SLIGHTLY ELEVATD TOFACILITATE BREATHING. CALL LIGHT WITHIN REACH.
--- NOTE | 2019-03-26 19:30 | NUR ---
RECEIVED PT LAYING IN BED, NO ACUTE DISTRESS OBSERVED, DENIES PAIN OR DISCOMFORT AT THIS TIME. PT ASLEEP, EASILY AROUSABLE TO VERBAL STIMULI. A/OX2, PERSON AND PLACE, SPEECH SLOW AND APPROPRIATE. AFIB TO TELE #10, HR 102, DENIES CP OR PRESSURE, PACEMAKER TO L UPPER CHEST IN PLACE. PULSES PALPABLE, PEDAL PULSES WEAK, +1 EDEMA TO BLE, +2 TO BUE. BREATHING ON 1LNC, EVEN AND UNLABORED, NO SOB OR DYSPNEA OBSERVED, CRACKLES TO UPPER LOBES, DIM TO STEFAN BASES, O2 SAT 95% ABD ROUND AND SOFT WITH ACTIVE BOWEL SOUNDS, NO N/V/D, LAST BM 4 DAYS AGO. WILLIS CATH IN PLACE DRAINING YELLOW URINE TO GRAVITY. GENERALIZED WEAKNESS, PT IS UP WITH P.T. MAX ASSIST, TURN AND REPOSITION Q2H. CENTRAL LIKE TO R FEMORAL, TRIPLE LUMEN CATH, ALL PORTS PATENT AND INTACT, DRESSING CDI. COMFORT AND SAFETY MEASURES IN PLACE. BED IN LOWEST POSITION WITH SIDE RAILS UPX2 AND BED ALARM ACTIVATED. CALL LIGHT WITHIN REACH. WILL CONTINUE TO MONITOR
[2019-03-26 20:36] VITALS: BP 106/63
[2019-03-27 05:41] VITALS: BP 112/46
--- NOTE | 2019-03-27 06:29 | NUR ---
NO SIGNIFICANT CHANGES TO REPORT, PT COMPLIED WITH NURSING CARE THROUGHOUT THE SHIFT WITH NO ACUTE EVENTS OVERNIGHT. 400 ML OUTPUT NOTED TO WILLIS CATH. R FEMORAL CENTRAL LINE, TRIPLE LUMEN CATH REMAINS IN PLACE, ALL PORTS PATENT AND INTACT, DRESSING CDI. NO ACUTE DISTRESS OBSERVED AT THIS TIME, PT LAYING IN BED BREATHING EVEN AND UNLABORED. COMFORT AND SAFETY MEASURES MAINTAINED. ALL NEEDS ASSESSED AND ATTENDED TO. CALL LIGHT WITHIN REACH. WILL CONTINUE TO MONITOR AND ENDORSE CARE TO DAY SHIFT NURSE.
[2019-03-27 07:46] LABS: CALCIUM 7.6 mg/dL (8.5-10.1); CARBON DIOXIDE 21.2 mmol/L (21-32); CHLORIDE SERUM 107 mmol/L (98-107); GLUCOSE SERUM 71 mg/dL (74-106); MAGNESIUM 2.1 mg/dL (1.8-2.4); PHOSPHOROUS 6.4 mg/dL (2.5-4.9); POTASSIUM SERUM 3.4 mmol/L (3.5-5.1); SODIUM SERUM 145 mmol/L (136-145)
[2019-03-27 07:50] LABS: CREATININE SERUM 5.2 mg/dL (0.6-1.0)
--- NOTE | 2019-03-27 07:53 | NUR ---
RECEIVED PATIENT FROM MALINDA CRUZ. PATIENT IN BED AT THIS TIME, NO COMPLAINTS OF PAIN OR SOB. SPOKE WITH PATIENT ABOUT PLAN OF CARE TODAY AND PATIENT AGREES. RESP TREATMENT AT THIS TIME AND HR ELEVATED TO 130s. WILL CONTINUE TO MONITOR AND ADD AIR MATTRESS FOR PATIENT. CALL LIGHT IN REACH.
[2019-03-27 07:54] LABS: BASOPHIL % 0.1 % (0-2); PLATELET COUNT 330 x10^3mcL (130-400)
[2019-03-27 07:57] LABS: RED CELL DISTRIBUTION WIDTH 25.4 % (11.5-14.5)
[2019-03-27 08:20] VITALS: BP 111/50
--- NOTE | 2019-03-27 11:48 | NUR ---
SPOKE WITH PATIENT FRIEND KIKO ABOUT CURRENT STATUS OF PATIENT. INFORMED HER ABOUT NEEDING EVAL FROM NEPHROLOGY BEFORE WE CAN PROCEED. ALL QUESTIONS ANSWERED AT THIS TIME. PATIENT IN BED, NO COMPLAINTS. WILL CONTINUE TO MONITOR. CALL LIGHT IN REACH, TAX EXAMINER/FRIEND KIKO AT BEDSIDE.
[2019-03-27 13:02] VITALS: BP 115/71
[2019-03-27 13:17] LABS: rbc morphology (normal/abnorm) ABNORMAL (NORMAL)
[2019-03-27 13:19] LABS: acanthocyte (spur cell) 1+; burr cell (echinocyte) 1+; ovalocyte/elliptocyte 1+
--- NOTE | 2019-03-27 13:44 | NUR ---
Follow-up Nutrition Assessment: Beatrice Ward [id number] Dx: Septick shock, PNA, renal failure, A-fib Labs: (03/27) 3.4L, BL, BUN:124H, Cr;5.2H, Ca:7.6L Phos:6.4H, AST:47H, BNP:1399H, Lactic acid:2.5H, H/H:7.7/25L Meds: Ipratropiu, Epworth, Levaquin, Lopressor, Phoslo, Pro-amatine, Robitussin, Sodium Bicarb, Zofran, Heparin Current Diet:Mechanical soft renal fluid restriction PO intake: (03/26) B/L/D:30% Weights: (03/24) 70kg (03/27) 69kg Skin: scattered ecchymosis to extremities Edema: +1 BLE, +1 BUE Last BM: 03/22, active bowel sounds Per progress note 03/27, pt is still refusing dialysis and may consider pallative care. During visit, pt was asleep and unarousable. Pt continues with poor PO intake. RD will continue to monitor. Estimated Nutritional Needs based on current body weight:70kg Energy:1750-2100kcal/day (25-30kcal/kg for renal failure) Protein: 70-84g/day (1.0-1.2g/kg for renal failure) Fluid: per MD due to renal failure and CHF Nutrition Diagnosis 1. Inadequate oral intake related to poor appetite as evidenced by documented PO<75% (ongoing) 2. Altered nutrition related labs related to renal failure as evidenced by BUN:124 and Cr:6.4 (revised, renal labs trending up) Intervention 1. Recommend continue with mechanically soft chopped renal diet with fluid restriction. Monitor/Evaluate Previous goal: PO intake at least 75% of estimated needs (not met) Goal: PO intake at least 75% of estimated needs Monitor: PO intake, Labs, GI function F/U in 2-3 days as high risk:03/29-
--- NOTE | 2019-03-27 13:46 | NUR ---
1. Recommend continue with mechanically soft chopped renal diet with fluid restriction.
[2019-03-27 17:00] VITALS: BP 98/58
--- NOTE | 2019-03-27 17:13 | NUR ---
PATIENT IN BED, MOANING. WHEN ASKED IF SHE NEEDED ANY PAIN CONTROL, PATIENT STATES NO. ABLE TO TAKE CRUSH PO MEDS WITH APPLESAUCE. WILL CONTINUE TO MONITOR AND AWAIT SPECIALISTS TO COME. CALL LIGHT IN REACH.
--- NOTE | 2019-03-27 18:24 | NUR ---
PATIENT IN BED. OCCASIONALLY MOANS BUT DENIES NEED FOR PAIN CONTROL. WILL ENDORSE TO ONCOMING NURSE ABOUT PLAN OF CARE. CALL LIGHT IN REACH AT THIS TIME.
--- NOTE | 2019-03-27 19:10 | NUR ---
DR. LAWRENCE IN TO SEE PT. NO NEW ORDERS AT THIS. PER DR. LAWRENCE PT CLEARED AT THIS TIME
--- NOTE | 2019-03-27 19:46 | NUR ---
RECEIVED PT LAYING IN BED, NO ACUTE DISTRESS OBSERVED, DENIES PAIN OR DISCOMFORT AT THIS TIME. EASILY AROUSABLE TO VERBAL STIMULI, AA/OX2, PERSON AND PLACE, SPEECH SLOW AND APPROPRIATE. AFIB TO TELE #10, HR 120S, DENIES CP OR PRESSURE, PACEMAKER TO L UPPER CHEST IN PLACE. PULSES PALPABLE, PEDAL PULSES WEAK, +1 EDEMA TO BLE, +2 TO BUE. BREATHING ON 1LNC, EVEN AND UNLABORED, NO SOB OR DYSPNEA OBSERVED, CONGESTED LUNG SOUNDS, DIM TO STEFAN BASES, O2 SAT 93% ABD ROUND AND SOFT WITH ACTIVE BOWEL SOUNDS, DENIES N/V/D, LAST BM EARLIER TODAY, OB STOOL (+) . WILLIS CATH IN PLACE DRAINING YELLOW URINE TO GRAVITY. GENERALIZED WEAKNESS, UP WITH P.T. MAX ASSIST, TURN AND REPOSITION Q2H, AIR MATTRESS IN PLACE. CENTRAL LIKE TO R FEMORAL, TRIPLE LUMEN CATH, ALL PORTS PATENT AND INTACT, DRESSING CDI. COMFORT AND SAFETY MEASURES IN PLACE. BED IN LOWEST POSITION WITH SIDE RAILS UPX2 AND BED ALARM ACTIVATED. CALL LIGHT WITHIN REACH. WILL CONTINUE TO MONITOR
[2019-03-27 20:57] VITALS: BP 117/72
--- NOTE | 2019-03-28 05:00 | NUR ---
DR. CARRILLO MADE AWARE PT'S HR AFIB, IN AND OUT OF RVR CONSISTENTLY, INTO HR 156. PER DR. CARRILLO, WILL ORDER STAT EKG. DR. CARRILLO ALSO MADE AWARE PT HAS PACEMAKER TO L UPPER CHEST WALL THAT MAY NEED TO BE INTERROGATED. PER DR. CARRILLO, WILL MAKE DAY AWARE OF PT'S PACEMAKER
--- NOTE | 2019-03-28 05:17 | NUR ---
PER PT, SHE DOES NOT KNOW THE COMPANY/BRAND OF HER PACEMAKER BUT STATES SHE HAD IT IMPLANTED 3 YEARS AGO AT [facility] DR. CARRILLO MADE AWARE OF INFORMATION
[2019-03-28 06:01] VITALS: BP 109/68
--- NOTE | 2019-03-28 06:11 | NUR ---
NO SIGNIFICANT CHANGES TO REPORT, PT COMPLIED WITH NURSING CARE THROUGHOUT THE SHIFT WITH NO ACUTE EVENTS OVERNIGHT. 500 ML OUTPUT NOTED TO WILLIS CATH. R FEMORAL CENTRAL LINE, TRIPLE LUMEN CATH REMAINS IN PLACE, ALL PORTS PATENT AND INTACT, DRESSING CDI. NO ACUTE DISTRESS OBSERVED AT THIS TIME, PT LAYING IN BED BREATHING EVEN AND UNLABORED. COMFORT AND SAFETY MEASURES MAINTAINED. ALL NEEDS ASSESSED AND ATTENDED TO. CALL LIGHT WITHIN REACH. WILL CONTINUE TO MONITOR AND ENDORSE CARE TO DAY SHIFT NURSE.
[2019-03-28 06:29] LABS: PLATELET COUNT 299 x10^3mcL (130-400)
[2019-03-28 06:47] LABS: CALCIUM 8.2 mg/dL (8.5-10.1); CARBON DIOXIDE 22.5 mmol/L (21-32); CHLORIDE SERUM 109 mmol/L (98-107); GLUCOSE SERUM 100 mg/dL (74-106); MAGNESIUM 2.3 mg/dL (1.8-2.4); PHOSPHOROUS 5.5 mg/dL (2.5-4.9); SODIUM SERUM 147 mmol/L (136-145)
--- NOTE | 2019-03-28 07:05 | NUR ---
RECEIVED BEDSIDE REPORT FROM INLETTER NURSE AT THIS TIME. PATIENT RESTING COMFORTABLY IN BED. NO APPARENT DISCOMFORT NOTED. 3L NC IN PLACE AND PATIENT TOLERATING WELL. PATIENT C/O MILD SHORTNESS OF BREATH. PATIENT DENIES CHEST PAIN/PRESSURE AT THIS TIME. WILLIS CATHETER DRAINING TO GRAVITY YELLOW URINE. RIGHT FEMORAL TRIPLE LUMEN PATENT AND INTACT. ALL QUESTIONS AND CONCERNS ADDRESSED. ALL NEEDS ATTENDED TO. WILL CONTINUE TO MONITOR
[2019-03-28 07:13] LABS: CREATININE SERUM 4.6 mg/dL (0.6-1.0)
[2019-03-28 07:17] LABS: BASOPHIL % 0 % (0-2); RED CELL DISTRIBUTION WIDTH 25.4 % (11.5-14.5)
[2019-03-28 08:54] VITALS: BP 101/55
--- NOTE | 2019-03-28 10:04 | NUR ---
ADMINISTERED ROUTINE MEDICATIONS ORDERED. PT TOLERATED WELL. NO ADVERSE SIDE EFFECTS NOTED. INSTRUCTED TO USE ERIC LIGHT . BED IN LOW POSITION. WILL CONTINUE TO MONITOR.
--- NOTE | 2019-03-28 10:33 | NUR ---
SPOKE TO DR. GONZALEZ REGUARDING PT PAIN MEDICATION. PER DR. GONZALEZ CANNOT ORDER OTHER PAIN MEDICATIONS DUE TO PT ALLERGIES AND KIDNEY FUNCTION. WILL REASSES PT AND WILL MEDICATE ORDERED PER EMAR.
[2019-03-28 11:05] LABS: rbc morphology (normal/abnorm) ABNORMAL (NORMAL); target cell (codocyte) 1+
[2019-03-28 11:42] VITALS: BP 120/56
--- NOTE | 2019-03-28 12:21 | NUR ---
PT SLEEPING IN BED. ADMINISTERED MROUTINE MEDS PRESCRIBED. PT IN NO APPARENT PAIN. WILL CONTINUE TOP MONITOR. BED IN LOW POSITION CALL LIGHT WITH IN REACH.
--- NOTE | 2019-03-28 12:21 | NUR ---
REPORTED TO DR GONZALEZ REGARDING PATIENTS PACEMAKER ALARMING AT THIS TIME. PATIENT DOES NOT RECALL PACEMAKER MODEL. DR GONZALEZ TO CONTACT DR BRADFORD. WILL PROCEED ORDERED. ALL NEEDS ATTENDED TO. WILL CONTINUE TO MONITOR
--- NOTE | 2019-03-28 14:52 | NUR ---
PHYSICAL THERAPY DAILY NOTES CO-SIGN All documentation done by the Business Administration Instructor for 03/28/19 has been reviewed. I agree with the documentation. Reviewed/Co-Signed by: Danelle Martinez PT Documentation Done by: TUAN PHILLIPS PREVENTION SPECIALIST
--- NOTE | 2019-03-28 17:20 | NUR ---
ADMINISTERED 40 MG LASXIX PRESCRIBED ON SEP NO ADVERSE SIDE AFFECTS NOTED. WILL CONTINUE TO MINITOR.
[2019-03-28 17:39] VITALS: BP 120/67
--- NOTE | 2019-03-28 19:12 | NUR ---
PT LAYING IN BED WATCHING TV. PT IN NO APPARENT DISTRESS. WILLIS CATHETER IN PLACE DRAINING TO GRAVITY. RIGHT FEMORAL IV TRIPLE LUMEN WHITE CAP NO PATENT OTHER 2 FLUSH WELL, NO REDDNESS OR BURNING, PT DENIES ANY PAIN. ALL QUESTIONS AND CONCERNS RESOLVED. BED IN LOW POSITION, INSTRUCTED PT TO USE CALL LIGHT FOR ASSISTANCE. ENDORSED ALL CARE TO CAN TENDER NURSE ALDO.
--- NOTE | 2019-03-28 19:30 | NUR ---
RECEIVED PT IN BED IN COMFORTABLY RESTING. NO ACUTE RSPIRATORY DISTRESS NOTED. DENIES ANY PAIN AT THIS TIME. CENTRAL LINE TO RIGHT FEMORAL. WHITE PORT NOT PATENT.SALINE LOCK. SCATTERED ECCHYMOSIS AND SCABS TO BLE AND BUE. AIRMATRESS AND F/C IN PLACED DRAINING TO GRAVITY WITH YELLOW URINE. TURN Q2HR. 1+ EDEMA TO BLE, + 2 EDEMA TO BUE. HOB ELEVATED. BED IN LOWEST POSITION,CALL LIGTH WITHIN REACH. WILL CONTINUE TO MONITOR.
[2019-03-28 21:22] VITALS: BP 125/60
--- NOTE | 2019-03-28 21:55 | NUR ---
CALLED DR VERMA REGARDING PT'S HR 135-160. WAITING FOR CALL BACK.
--- NOTE | 2019-03-28 22:19 | NUR ---
HR: 120-160. DR VERMA AWARE. WAITING FOR NEW ORDER.
--- NOTE | 2019-03-28 22:43 | NUR ---
PT C/O BACK PAIN 12/13. MEDICATED TRAMADOL 50MG PO ORDERED. WILL CONTINUE TO MONITOR.
--- NOTE | 2019-03-28 22:44 | NUR ---
MEDICATED CARDIZEM 30MG PO FOR HR ORDERED. WILL CONTINUE TO MONITOR.
--- NOTE | 2019-03-28 23:53 | NUR ---
REPOSITIONED PT TO THE RIGHT. NO SOB NOTED.DENIES PAIN AT THIS TIME. WILL CONTINUE TO MONITOR.
--- NOTE | 2019-03-29 05:30 | NUR ---
PT ASLEEP BUT EASILY AROUSABLE. NO ACUTE RESPIRATORY DISTRESS NOTED. NO INDICATION OF PAIN. REPOSITIONED PT, Z GUARD APPLIED. F/C CARE DONE. EMPTIED 700CC WITH YELLOW URINE. BED IN LOWEST POSITION,CALL LIGHT WITHIN REACH. WILL CONTINUE TO MONITOR.
--- NOTE | 2019-03-29 06:19 | NUR ---
PT C/O COUGH. MEDICATED ROBITUSSIN 5MG ORDERED. WILL CONTINUE TO MONITOR.
[2019-03-29 06:30] LABS: PLATELET COUNT 265 x10^3mcL (130-400)
[2019-03-29 06:43] LABS: CALCIUM 8.5 mg/dL (8.5-10.1); CARBON DIOXIDE 24.7 mmol/L (21-32); CHLORIDE SERUM 111 mmol/L (98-107); GLUCOSE SERUM 114 mg/dL (74-106); MAGNESIUM 2.3 mg/dL (1.8-2.4); PHOSPHOROUS 5.3 mg/dL (2.5-4.9); POTASSIUM SERUM 3.7 mmol/L (3.5-5.1); SODIUM SERUM 148 mmol/L (136-145)
--- NOTE | 2019-03-29 06:55 | NUR ---
PT REFUSED V/S. DR VERMA MADE AWARE.
--- NOTE | 2019-03-29 07:10 | NUR ---
RECEIVED BEDSIDE REPORT FROM PARK WORKER SUPERVISOR NURSE AT THIS TIME. PATIENT RESTING COMFORTABLY IN BED. NO APPARENT DISTRESS OR DISCOMFORT NOTED. 3L NC AND TOLERATING WELL. PATIENT C/O MILD SHORTNESS OF BREATH. PATIENT DENIES CHEST PAIN/PRESSURE AT THIS TIME. WILLIS CATHETER DRAINING TO GRAVITY YELLOW URINE. RIGHT FEMORAL TRIPLE LUMEN PATENT AND INTACT. ALL QUESTIONS AND CONCERNS ADDRESSED. ALL NEEDS ATTENDED TO. WILL CONTINUE TO MONITOR
--- NOTE | 2019-03-29 07:14 | NUR ---
CARE ENDORSED TO DAY NURSE KHURRAM
--- NOTE | 2019-03-29 08:47 | NUR ---
DR MAK AT BEDSIDE SPEAKING WITH PATIENT REGARDING HOSPICE AT THIS TIME. PER PATIENT SHE IS AGREEABLE TO HOSPICE. PATIENT WAS ASKED IF SHE HAD ANY FAMILY MEMBER SHE WOULD LIKE TO BE CONTACTED. PER PATIENT THERE ARE NO FAMILY MEMBERS SHE WOULD LIKE TO BE CONTACTED AND SHE MAKES HER OWN DECISIONS. ALL QUESTIONS AND CONCERNS ADDRESSED. ALL NEEDS ATTENDED TO. WILL CONTINUE TO MONITOR
[2019-03-29 09:35] VITALS: BP 105/34
--- NOTE | 2019-03-29 09:56 | NUR ---
P.T. NOTES PATIENT REFUSED TO BE SEEN BY P.T., STATES NOT FEELING WELL AND HAVING PAIN, MADE RN AWARE.
--- NOTE | 2019-03-29 10:00 | NUR ---
MORNING MEDICATION ADMINISTERED. PATIENT TOLERATED MEDICATIONS WELL CRUSHED AND WITH PUDDING. NO APPARENT ADVERSE EFFECTS NOTED. ALL NEEDS ATTENDED TO. WILL CONTINUE TO MONITOR
[2019-03-29 12:16] VITALS: BP 129/54
[2019-03-29 12:34] LABS: BAND NEUTROPHIL 0 % (0-10); BASOPHIL 0 % (0-2); MONOCYTE 1 % (0-7); SEGMENTED NEUTROPHILS 95 % (37-75); rbc morphology (normal/abnorm) ABNORMAL (NORMAL)
[2019-03-29 12:35] LABS: PLATELET MORPHOLOGY PLATELETS INCREASED
--- NOTE | 2019-03-29 13:19 | NUR ---
SPOKE TO DR GONZALEZ AT THIS TIME REGARDING PATIENT ICD DEVICE ALARMING WITH "SIREN" NOISES. INFORMED DR GONZALEZ PATIENT PACEMAKER IS [employer] AND PATIENT RECEIVED DEVICE IN AUG 2014. PER DR GONZALEZ, HE SPOKE WITH DR BRADFORD YESTERDAY AND PER DR BRADFORD NO NEED FOR INTERROGATION OF DEVICE NEEDED AT THIS TIME. ALL QUESTIONS ADDRESSED. WILL CONTINUE TO MONITOR
--- NOTE | 2019-03-29 14:42 | NUR ---
PHYSICAL THERAPY DAILY NOTES CO-SIGN All documentation done by the Staking Press Operator for 03/29/19 has been reviewed. I agree with the documentation. Reviewed/Co-Signed by: Danelle Martinez PT Documentation Done by: TUAN RAM PTA
[2019-03-29 17:07] VITALS: BP 114/49
[2019-03-29 17:21] VITALS: BP 114/49
--- NOTE | 2019-03-29 18:23 | NUR ---
PATIENT RESTING COMFORTABLY IN BED AT THIS TIME. NO APPARENT DISTRESS OR DISCOMFORT NOTED. WILLIS CATHETER DRAINING TO GRAVITY YELLOW URINE. RIGHT FEMORAL TRIPLE LUMEN PATENT AND INTACT. ALL QUESTIONS AND CONCERNS ADDRESSED. ALL NEEDS ATTENDED TO. SAFETY PRECAUTIONS MAINTAINED. WILL ENDORSE ALL CARE TO MAPPING SPECIALIST NURSE
--- NOTE | 2019-03-29 19:30 | NUR ---
RECEIVED PT IN BED RESTING. NO ACUTE RESPIRATORY DISTRESS NOTED. NO C/O CP OR ANY PAIN AT THIS TIME. F/C IN PLACED DRAINING TO GRAVITY WITH YELLOW URINE. AIRMATTRESS. TURN Q2HR. SCATTERED ECCHYMOSIS TO BUE/BLE. MILD ERYTHEMA TO BUTTOCKS AND INGUINAL AREA. Z GUARD APPLIED. BED IN LOWEST POSITION,SIDERAILS UP.CALL LIGHT WITHIN REACH. WILL CONTINUE TO MONITOR.
[2019-03-29 20:36] VITALS: BP 130/63
--- NOTE | 2019-03-29 22:42 | NUR ---
PT C/O INSOMIA. MEDICATED AMBIEN 5MG PO ORDERED. WILL CONTINUE TO MONITOR.
--- NOTE | 2019-03-30 04:36 | NUR ---
PT ASLEEP BUT EASILY AROUSABLE. NO DISTRESS NOTED. NO INDICATION OF PAIN. REPOSITIONED PT. F/C AND BEDSIDE CARE DONE. BED IN LOWEST POSITION,CALL LIGHT WITHIN REACH. WILL CONTINUE TO MONITOR.
[2019-03-30 06:49] LABS: CALCIUM 7.9 mg/dL (8.5-10.1); CARBON DIOXIDE 26.5 mmol/L (21-32); CHLORIDE SERUM 109 mmol/L (98-107); CREATININE SERUM 3.2 mg/dL (0.6-1.0); GLUCOSE SERUM 96 mg/dL (74-106); PHOSPHOROUS 4.3 mg/dL (2.5-4.9); POTASSIUM SERUM 3.9 mmol/L (3.5-5.1); SODIUM SERUM 148 mmol/L (136-145)
[2019-03-30 07:06] VITALS: BP 147/54
--- NOTE | 2019-03-30 07:20 | NUR ---
RECEIVED PATIENT AWAKE/ALERT IN BED, C/O ARM HURT WHEN RETAIL DEPARTMENT MANAGER TAKING PATIENT VITALS. NO ACUTE DISTRESS NOTED. RT FEMORAL CL X3 LUMENS INTACT AND HEPLOCK NOTED, CDI. PATIENT ASKING FOR JUICE INFORM PATIENT BREAKFAST TRAY WILL BE HERE SOON. CALL LIGHT WITH IN REACH.
--- NOTE | 2019-03-30 07:32 | NUR ---
CARE ENDORSED TO DAY NURSE
[2019-03-30 07:42] LABS: PLATELET COUNT 313 x10^3mcL (130-400); RED CELL DISTRIBUTION WIDTH 24.4 % (11.5-14.5)
[2019-03-30 07:43] LABS: BASOPHIL % 0.1 % (0-2)
[2019-03-30 08:13] VITALS: BP 96/59
--- NOTE | 2019-03-30 09:19 | NUR ---
PATIENT SAT UP IN BED WATCHING TV, NO ACUTE DISTRESS NOTED. CRUSH MEDS PUT IN JELLO PER PATIENT REQUEST, PATIENT TOOK HER MEDS W/ DIFFICULTY. STATE JELLO IS GOOD, ATE I CUP. NEED MET. CALL LIGHT WITHIN REACH.
[2019-03-30 09:38] LABS: rbc morphology (normal/abnorm) ABNORMAL (NORMAL)
--- NOTE | 2019-03-30 10:42 | NUR ---
INFORM LOUISE IBANEZ HEPARIN SQ HELD DUE TO LOW H/H 5.1 AND 17.
--- NOTE | 2019-03-30 11:29 | NUR ---
Follow-up Nutrition Assessment: T/B JULIOCESAR OH FU HR Dx: PNA, renal failure, septic shock PMHx: COPD, CHF, A fib Labs: (03/30) NA 148H, BUN 110H, CREAT 3.2H, ALB 2.4L, AST 47H Meds: Cardizem, Lopressor, phoslo, zofran Diet: Renal, Mechanically soft- chopped PO Intake: (03/30) breakfast 100%, (03/29) breakfast, lunch 30%, (03/28) lunch 50% Weights: (03/25) 80 kg, (03/26) 71 kg, (03/30) bed scale not working Skin: scattered ecchymosis to BUE/BLE Chris: 13 I/Os: (03/29) 92/2024 (-1105) Edema: BLE +1 edema GI: Last BM: 03/27 RDN Visit (03/30): Patient was alert and oriented and said that she ate 100% breakfast this morning. She said that her appetite is starting to come back. She does not have any N/V/D/C at this time. Per STRAW HAT BRIM CUTTER OPERATOR Jose R, pt is having hospice eval today. Estimated Nutritional Needs Based on current body weight 70 kg Energy: 0468-8725 kcal/d (25-30 kcal/kg) Protein: 56-70 g/d (0.8-1.0 g/kg) - renal failure Fluid: 4767-7336 ml/d (1 ml/kcal) or per doctor Nutrition Diagnosis 1. Inadequate oral intake related to poor appetite as evidenced by documented PO <75%. (improving, PO breakfast 100%, pt saying that appetite is coming back). 2. Altered nutrition related lab values related to renal failure as evidenced by BUN : 110, CREAT 3.2 (revised, lab values trending down). Intervention 1. Recommend continuing Renal (mechanically soft- chopped) diet. Monitor/Evaluate Goal: Have pt meet at least 75% of estimated needs Monitor: PO intake, Labs, GI function F/U in 7 days as low risk 04/06
--- NOTE | 2019-03-30 11:30 | NUR ---
Recommend continuing Renal (mechanically soft- chopped) diet.
--- NOTE | 2019-03-30 11:36 | NUR ---
PATIENT LAYING IN BED MOANING, ASKING PATIENT C/O SOB, REPOSITION TO LEFT SUIDE , HOB ELEVATED, BLE ELEVATED. CALL RT FOR BREATHING TX, TORSTEN FLYNN SEEN PATIENT AND PATIENT REFUSED SNF. CALL LIGHT WITHIN REACH.
[2019-03-30 12:19] VITALS: BP 115/73
--- NOTE | 2019-03-30 12:34 | NUR ---
REPOSITION PATIENT UP IN BED, HOB ELEVATED. ADMINISTERED MEDS WITH JELLO. PATIENT TOLERATED. ROBITUSSIN 5ML ADMINISTERED FOR COUGH. CONT TO MONITOR. CALL LIGHT WITHIN REACH.
[2019-03-30 12:57] LABS: PLATELET COUNT 271 x10^3mcL (130-400)
[2019-03-30 13:05] LABS: BASOPHIL % 0 % (0-2); RED CELL DISTRIBUTION WIDTH 24.8 % (11.5-14.5)
[2019-03-30 13:46] LABS: rbc morphology (normal/abnorm) ABNORMAL (NORMAL)
--- NOTE | 2019-03-30 14:19 | NUR ---
PHYSICAL THERAPY DAILY NOTES CO-SIGN All documentation done by the Shock Absorption Floor Layer for 03/30/19 has been reviewed. I agree with the documentation. Reviewed/Co-Signed by: Danelle Martinez PT Documentation Done by: TUAN RAM PTA
--- NOTE | 2019-03-30 14:23 | NUR ---
PATIENT AWAKE/ALERT IN BED ASKING FOR REPOSITION C/O UNCOMFORTABLE. CARDIZEM AND TRAMADOL ADMINISTERED. DR. BRADFORD SEEN PATIENT AT BEDSIDE INFORM DRAmaury PATIENT'S HR 150'S PER DR. BRADFORD WILL CHECK ON THE MONITOR AND WAS AWARE METOPROLOL HELD LOW BP. PATIENT'S SON- CARLIN HERE TO VISIT PATIENT. CALL LIGHT WITHIN REACH.
--- NOTE | 2019-03-30 15:55 | NUR ---
ELEVATED HOB ADMINISTERED DIGOXIN PO MED JELLO PATIENT SWALLOW W/O PROBLEM, HR 138. LASIX 20MG IVP X1 ADMINISTERED TO RT FEMORAL CL; FLUSH WELL WITH NS X 3. TURN TO RT SIDE. CALL LIGHT WITHIN REACH. PATIENT OCCAS. MOANING "AFTER SON LEFT".
[2019-03-30 16:17] VITALS: BP 120/69
--- NOTE | 2019-03-30 17:21 | NUR ---
PATIENT AWAKE/ALERT IN BED, ELEVATED HOB, PHOSLO PO ADMINISTERED W/ JELLO. PATIENT TOLERATED WELL. NO COMPLAIN. PATIENT STATED "I NEED TO PEE" EXPLAINED TO PATIENT SHE HAS WILLIS TO CATCH URINE, AUGUSTO FROM [facility] IN TO SEE PATIENT. CALL LIGHT WITHIN IN REACH.
--- NOTE | 2019-03-30 17:38 | NUR ---
AFTER AUGUSTO FROM [facility] SPOKE TO PATIENT, PATIENT FIRST OPTION IS GOING HP[facility] W/ HOSPICE; PER AUGUSTO WILL TRY TO WORK WITH INS[employer]. TO GET 24HRS CAREGIVER. 2ND OPTION IS SNF W/ HOSPICE; PATIENT AGREE.
--- NOTE | 2019-03-30 18:15 | NUR ---
PATIENT ON ERWYANO WITH ALL BELONGINGS WITH [facility] AND OPATIENT HAD HIS PASSPORT IN HIS POCKET. TRANSFER TO [facility] IN [place] AT THIS TIME.
--- NOTE | 2019-03-30 18:21 | NUR ---
PATIENT STILL WORKING ON HER DINNER, NO ACUTE DISTRESS NOTED. NEEDS MET. CALL LIGHT WITHIN REACH.
--- NOTE | 2019-03-30 19:15 | NUR ---
PT RECEIVED A/O X 2-3, EPISODES OF CONFUSION, SLOW TO RESPOND, ABLE TO MAKE NEEDS KNOWN. TELE #10, DENIES ANY CP/PRESSURE. WEAK PEDAL PULSES, EDEMA NOTED TO BUE. BREATHING IS EVEN AND UNLABORED ON 2L NC, PT DENIES SOB, NO RESP DISTRESS NOTED. ABD SOFT AND ROUND, BOWEL TONES ACTIVE X4 QUAD, DENIES N/V. PT ON MECHANICAL SOFT-CHOPPED DIET, CRUSH MEDS, ASPIRATION PRECATIONS IN PLACE. WILLIS CATH SECURED AND IN PLACE, DRAINING VIA GRAVITY, YELLOW URINE NOTED. GENERALIZED WEAKNESS, ON AIR MATTRESS, TURN Q2H. SCATTERED ECCHYMOSIS AND SCABS NOTED TO BUE AND BLE; ERYTHEMA NOTED TO PERINEAL AREA WITH ZGUARD IN PLACE. PT DENIES HAVING ANY PAIN AT THIS TIME. RT FEMORAL CENTRAL LINE IN PLACE, TRIPLE LUMEN, ALL PORTS PATENT WITH GOOD BLOOD RETURN NOTED. NO ACUTE DISTRESS NOTED. BED ALARM ON. BED IN LOWEST SETTING, SIDE RAILS UP X2, CALL LIGHT WITHIN REACH. WILL CONT TO MONITOR.
[2019-03-30 20:41] VITALS: BP 121/61
--- NOTE | 2019-03-30 21:47 | NUR ---
SCHEDULED PO MEDS GIVEN, CRUSHED WITH APPLE SAUCE, ASPIRATION PRECAUTIONS IN PLACE. PT TOLERATED WELL. SPOKE WITH DR VERMA REGARDING PT'S SCHEDULED HEP SQ, H/H-5.1, REPEAT-7.8, PLT-271. NO ACTIVE BLEEDING OBSERVED. PER ROSE SANTANA TO CONT PT ON HEP SQ.
--- NOTE | 2019-03-31 00:56 | NUR ---
PT RESTING IN BED WITH EYES CLOSED, BUT IS EASILY AROUSABLE. BREATHING IS EVEN AND UNLABORED, NO RESP DISTRESS NOTED. PT DENIES HAVING ANY PAIN AT THIS TIME. PT REPOSITIONED. RT FEMORAL LINE CENTRAL DRSG NOTED SOILED. CENTRAL LINE DRSG COMPLETED, PT TOLERATED WELL. WILLIS CATH IN PLACE, DRAINING TO GRAVITY. NO ACUTE DISTRESS NOTED. BED ALARM ON. CALL LIGHT WITHIN REACH. WILL CONT TO MONITOR.
[2019-03-31 05:46] VITALS: BP 119/55
--- NOTE | 2019-03-31 06:13 | NUR ---
PT SLEPT WELL THROUGHOUT THE EVENING. BREATHING IS EVEN AND UNLABORED, NO RESP DISTRESS NOTED. PT DENIES HAVING ANY PAIN AT THIS TIME. NO ACUTE CHANGES ENCOUNTERED DURING SHIFT. ALL NEEDS MET AND ANTICIPATED. RT FEMORAL LINE, TRIPLE LUMEN IN PLACE, ALL PORTS PATENT, DRSG CDI. BED ALARM ON. CALL LIGHT WITHIN REACH. WILL ENDORSE CARE TO AM NURSE.
[2019-03-31 06:49] LABS: PLATELET COUNT 240 x10^3mcL (130-400)
[2019-03-31 07:15] LABS: BASOPHIL % 0 % (0-2); RED CELL DISTRIBUTION WIDTH 24.9 % (11.5-14.5)
--- NOTE | 2019-03-31 07:30 | NUR ---
PT IS AAOX4. LUNG SOUNDS CTA. ON R/A. NORMAL S1S2 NOTED. ABDOMEN SOFT, NONTENDER, NONDISTENDED. BOWEL SOUNDS ACTIVE X 4 QUADS. PT DENIES N/V/D AND CONSTIPATION. SKIN CDI. NO EDEMA NOTED. R FEMORAL CENTRAL LINE, ALL 3 PORTS FLUSHED WITH GOOD BLOOD RETURN. SITE WNL. NO S/S OF INFECTION NOTED. PT DENIES PAIN AND DISCOMFORT AT THIS TIME. CALL LIGHT WITHIN REACH. BED IN LOWEST POSITION.
[2019-03-31 07:38] LABS: CALCIUM 8.8 mg/dL (8.5-10.1); CARBON DIOXIDE 26.1 mmol/L (21-32); CHLORIDE SERUM 108 mmol/L (98-107); CREATININE SERUM 2.8 mg/dL (0.6-1.0); GLUCOSE SERUM 91 mg/dL (74-106); POTASSIUM SERUM 3.5 mmol/L (3.5-5.1); SODIUM SERUM 147 mmol/L (136-145)
[2019-03-31 08:22] VITALS: BP 104/59
--- NOTE | 2019-03-31 09:11 | NUR ---
TURNED AND REPOSITIONED PT. DUE MEDS GIVEN AND TOLERATED WELL. B/P 104/49 (67). RESP EVEN AND UNLABORED. O2 N/C AT [address] PT DENIES PAIN AT THIS TIME. BED ALARM ON. FALL PROTOCOL IN PLACE. CALL LIGHT WITHIN REACH.
--- NOTE | 2019-03-31 10:16 | NUR ---
WILLIS AND PERINEAL CARE GIVEN. PT SKIN CLEANSED WITH WATER AND Z-GUARD APPLIED TO PERINEAL REDNESS AND REDNESS IN ABDOMINAL SKIN FOLDS. PT'S BEDDING AND GOWN CHANGED. BED IN LOWEST POSTION. CALL LIGHT WITHIN REACH.
--- NOTE | 2019-03-31 12:26 | NUR ---
ULTRAM 50MG PO GIVEN FOR H/A, SHARP AND PIERCING, 12/13. DUE MEDS GIVEN AND TOLERATED WELL. CALL LIGHT WITHIN REACH.
[2019-03-31 13:28] VITALS: BP 111/54
--- NOTE | 2019-03-31 14:57 | NUR ---
PHYSICAL THERAPY DAILY NOTES CO-SIGN All documentation done by the Open Hearth Worker for 03/31/19 has been reviewed. I agree with the documentation. Reviewed/Co-Signed by: Danelle Martinez PT Documentation Done by:TUAN RAM PTA
[2019-03-31 16:29] VITALS: BP 116/64
--- NOTE | 2019-03-31 16:49 | NUR ---
SPOKE WITH PT'S EMERGENCY CONTACT AND NEIGHBOR KIKO MOLINA ([phone]). SHE TAKES CARE OF THE PT'S DOGS AND WOULD LIKE AN UPDATE TO WHEN THE PT WILL BE DISCHARGED OR TRANSFERRED. KIKO PROVIDED THE PT'S SON CELL NUMBER, CARLIN BARBA ([phone]). ALSO STATED THAT THE PT'S PACEMAKER HAD BEEN INTEROGATED 2 MONTHS AGO AND THAT THE PACEMAKER IS A [employer] #[id number]. SPECIALIST MANAGERS BOBBY MADE AWARE OF CARLIN'S CONTACT NUMBER. BOBBY STATED THAT SHE WILL CONTACT ADMISSIONS AND HAVE THEM ADD THE NUMBER TO THE PT'S FACE SHEET.
--- NOTE | 2019-03-31 17:01 | NUR ---
CALLED AND SPOKE TO (MOTOR VEHICLE ESCORT DRIVER) AND UPDATED HIM OF PT STATUS AND ALSO VERIFIED IF HE WAS MADE AWARE OF ALARMING INCIDENT THAT STAFF NURSE HAD REPORTED NOTICING WHICH SOUNDS LIKE PT PACEMAKER. RHYTHM STILL SHOWS UNCONTROLLED AFIB. NEW ORDER RECEIVED OKAY TO INTERROGATE PACEMAKER. DEVON PETTY ASSIGNED TO THIS PT MADE AWARE OF ABOVE.
--- NOTE | 2019-03-31 17:12 | NUR ---
PT'S PACEMAKER INTERROGATED AT THIS TIME.
--- NOTE | 2019-03-31 17:37 | NUR ---
RECEIVED PACEMAKER INTEROGATION RESULTS FROM [employer], RESULTS PLACE IN PT'S CHART. PACEMAKER RESULT SHOW PACEMAKER IS FUNCTIONING AT FULL CAPACITY. PT MADE AWARE.
--- NOTE | 2019-03-31 18:10 | NUR ---
PT IS AAOX3-4 WITH EPISODES OF CONFUSION, SLOW TO RESPOND. RESP EVEN AND UNLABORED. NO DISTRESS NOTED. R FEMORAL CENTAL LINE, TRIPLE LUMEN, ALL 3 PORTS FLUSHED AND PATENT. PT DENIES PAIN AT THIS TIME. TELE [address] READING A-FIB HR FLUCTUATES BETWEEN 80-160. PT DENIES C/P, PRESSURE AND PALPITATIONS. CALL LIGHT WITHIN REACH. PT TURNED AND REPOSITIONED THROUGH OUT SHIFT. FALL PROTOCOL MAINTAINED. BED ALARM ON. WILL ENDORSE ALL CARE TO NOC RN.
[2019-03-31 19:42] VITALS: BP 106/71
--- NOTE | 2019-03-31 19:47 | NUR ---
PATIENT RECEIVED IN BED SLEEPING EASILY AWAKEN VERBALLY TO RESPOND TO VERBAL COMMAND, ANSWERS SIMPLE QUESTIONS APPROPRIATELY, SPEECH SLOW BUT CLEAR. NO RESP. DISTRESS BREATHING EVEN AND UNLABORED BS CLEAR DIMINISHED, FOUND ON 2LNC SAT 1005, DENIED SOB. DENIED CHEST PAINS HR=79BPM, RHYTHM IRREGULAR, HX; PACEMAKER, SITE LEFT UPPER CHEST, NO PACER BEATS NOTED ON TELE STRIP, TELE#10 CONTROLLED ATRIAL FIB. RT FEMORAL CENTRAL TRIPLE LUMEN CATH, DRESSING CDI, CHECKED PATENCY OF PORT AND GOOD BLOOD RETURN ON ALL,CAP LOCK. SAFETY/FALL PRECAUTIONS MAINTAINED. PATIENT OFFERED NO COMPLAINTS THIS TIME. INFORMED ABOUT POC THIS SHIFT. WILL CONTINUE TO MONITOR.
--- NOTE | 2019-03-31 21:01 | NUR ---
SCHEDULED MEDICATIONS ADMINISTERED ORALLY, TOOK PILLS WITHOUT DIFF WITH HOB ELEVATED. PATIENT INFORMED ABOUT EACH MEDS ACTIONS AND PURPOSE PRIOR. NO COMPLAINTS MAED. RT FEM CENTRAL LINE TRIPLE LUMEN ALL PORTS WITH BLOOD RETURN AND FLUSHED WELL. DRESSING CDI.RE CAPPED.
--- NOTE | 2019-03-31 22:00 | NUR ---
PATIENT WAS TURNED TO HER LEFT SIDE THIS TIME, HS CARE RENDERED, MARSHALL CARE DONE, APPLIED Z-GUARD TO MARSHALL AREA.
--- NOTE | 2019-04-01 00:07 | NUR ---
ROUND MADE PATIENT SLEEPING EASILY AWAKEN, OFFERED NO COMPLAINTS. ATRIAL FIB CONTROLLED RATE ON THE MONITOR, CH=[id number]. PATIENT TURNED AND REPOSITIONED TO HER RIGHT.SAFETY PRECAUTIONS MAINTAINED. WILL CONTINUE TO MONITOR.
--- NOTE | 2019-04-01 02:00 | NUR ---
TURNED TO SUPINE POSITION. NO DISTRESS, PATIENT COMFORTABLE.
--- NOTE | 2019-04-01 05:52 | NUR ---
PATIENT COMPLAINED OF BACK PAIN, MEDICATED PRN.TURNED AND REPOSITIONED. WILLIS CATH CARE RENDERED, APPLIED ORNAGE STICKER TO WILLIS BAG.
[2019-04-01 05:55] VITALS: BP 110/77
--- NOTE | 2019-04-01 06:14 | NUR ---
PATIENT SLEPT WELL AND RESTED GOOD DURING THE SHIFT.NO DISTRESS ENCOUNTERED, ATRIAL FIB ON THE MONITOR RATE ON THE HIGH 100'S, NO PACER BEATS NOTED ON TELE MONITOR.BEEN TURNED Q2HRS. NEEDS ANTICIPATED.SAFETY PRECAUTIONS MAINTAINED. WILL ENDORSE CONTINUITY OF CARE TO INCOMING NURSE.
[2019-04-01 06:42] LABS: CALCIUM 8.2 mg/dL (8.5-10.1); CARBON DIOXIDE 27.1 mmol/L (21-32); CHLORIDE SERUM 109 mmol/L (98-107); CREATININE SERUM 2.4 mg/dL (0.6-1.0); GLUCOSE SERUM 99 mg/dL (74-106); POTASSIUM SERUM 3.7 mmol/L (3.5-5.1); SODIUM SERUM 146 mmol/L (136-145)
--- NOTE | 2019-04-01 07:18 | NUR ---
BEDSIDE REPORT AND INTRODUCTION PERFORMED WITH INCOMING NURSE WILLIAMS.
--- NOTE | 2019-04-01 08:00 | NUR ---
RECEIVED PATIENT AWAKE AND SITTING UP IN BED AND EATTING BREAKFAST. SHE HAS HAD NO SIGNS OF DIFFICULTY EATTING AMD NO INDICATION SHE IS AT RISK FOR ASPIRATION AT THIS TIME. SHE TOLERATED THE PILLS GIVEN AND SHE DOES NOT CHOKE ON FLUIDS. SHE ATE VERY WELL AND ALMOST EVERYTHING ON THE TRAY. PATIENT SKIN WITH MANY AREAS OF ECCHYMOSIS AND HAS SOME LITTLE SCABBED AREAS AND PAPERY SKIN WITH POOR TURGOR NOTED. SHE AHS EDEMA TO THE LOWER EXTREMTIES OF 1 PLUS AND HAS RALES TO THE LUNGS AND NO COUGH WAS HEARD BUT THE PATIENT INDICATED SHE HAS BEEN COUGHING ON AND OFF. SHE DENIES PAIN AT THIS TIME AND HAD ULTRAM EARLIER FOR PAIN AND SEEMS TO BE EFFECTIVE AT THIS TIME. VITALS ARE AT 97.8, 77, 18, 110/77, 98% ON 02 AT 2 LITERS. PATIENT HAS BEEN AFIB WITH A PACEMAKER ON DEMAND THE FEMORAL CENTRAL LINE INTACT AND PATIENT HAS BEEN WITH EXCORIATION TO THE GROIN AREA AND Z GUARD WAS APPLIED. PATIENT HAS BEEN WITH BUN AT 96.0 AND CREATININE AT 2.4. BOTH OF THESE LABS ARE IMPROVED FROM PRIOR. PATIENT HAS WBC NOW AT 8.1 AND WAS AT 11.2. SHE HAS BEEN ON LEVQUIN PO AND LYING ON A AIR MATTRESS AND GIVEN MAX ASIST WITH TURNING AND POSITIONING. SHE HAS HAD HER LAST BM WAS ON THE 22 AND WILLIS TO GRAVITY AND URINE OUTPUT IS ADEQUATAE AT THIS TIME. 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 SHE HAS A MODIFIED CODE STATUS AND WAS SEEN FOR POSSIBLE HOSPICE BUT AT THIS TIME SHE DOES NOT QUALIFY. 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 SHE HAS BEEN ON AND OFF FORGETFUL AND SHE HAS POOR VISION AND SOME MILD HEARING LOSS. WILL CONTINUE TO MONITOR INICATED.
[2019-04-01 08:35] VITALS: BP 109/65
[2019-04-01 13:02] VITALS: BP 117/89
--- NOTE | 2019-04-01 16:30 | NUR ---
PATIENT RESTING QUIETLY AND DOES NOT SEEM TO BE IN ANY PAIN. PATIENT HAS BEEN ANXIOUS AT TIMES AND IRRATATED WITH THINGS LIKE SOCKS AND REPORTED TO NOT WANT THE SCDS LAST NIGHT. SHE HAS COOL TO THE TOUCH LOWER EXTREMITES AND DOES NOT TOLERATE ANY CONSTRANTS TO AMANDA FEET OR LEGS. THE SEA CAPTAIN CALLED TO REPORT HER HEARTRATE UP AND DOWN TO AMANDA 120S AND DOWN TO THE 60. SHE DOES NOT TOLERATE THE BP CUFF WELL EITHER. PATIENT IS CALM NOW AND HAD TOELRATED ALMOST 80 PER CENT OF HER LUNCH AND FED HERSELF AND NO SIGNS OF ASPIRATION OR DIFFICULTY SWALLING NOTED. PATIENT IS FOR DISCHARGE TO A SNF TOMORROW. PATIENT IS AGREEABLE AND THE SONE WELL. SHE IS TO LEAVE AROUND 1100AM.
[2019-04-01 16:45] VITALS: BP 131/76
--- NOTE | 2019-04-01 18:14 | NUR ---
PATIENT TOLERATED LUNCH AND HAS BEEN EATTING VERY WELL AND NO SIGNS OF CHOKING OR ASPIRATION NOTED. PATIENT POSITIONED FOR COMFORT AND GAVE LASIX IVP ORDERED. MONITORING OUTPUT.
--- NOTE | 2019-04-01 19:35 | NUR ---
RECEIVED REPORT FROM DAY SHIFT RN. PT RESTING IN BED. AA&O X4. BREATHING EVEN AND UNLABORED. NO SOB NOTED ON O2 2L VIA NC. NO C/O PAIN. CENTRAL LINE TRIPLE LUMEN TO RIGHT FEMORAL, INTACT. SAFETY MEASURES IN PLACE. BED IN LOWEST POSITION. SIDE RAILS UP X2. DEMONSTRATED HOW TO USE THE CALL LIGHT. CALL LIGHT WITHIN REACH. BED ALARM ON.
[2019-04-01 20:31] VITALS: BP 100/64
[2019-04-02 06:20] VITALS: BP 93/60
[2019-04-02 06:23] LABS: PLATELET COUNT 199 x10^3mcL (130-400)
--- NOTE | 2019-04-02 06:33 | NUR ---
PT RESTED IN INTERVALS THROUGHOUT SHIFT. NO SOB ON O2 2L VIA NC. BREATHING EVEN AND UNLABORED. NO C/O PAIN. PT CALLS FOR HELP BUT WHEN ASKED PT STATES SHE DOES NOT NEED HELP AND THAT SHE IS FINE. FORGETFUL AT TIMES. REMINDED PT A FEW TIMES TO KEEP NASAL CANNULA ON. APPLIERD Z GUARD TO PERINEAL AREA. WILLIS CARE DONE. SAFETY MEASURES MAINTAINED. ALL NEEDS ATTENDED TO. WILL ENDORSE CARE TO DAY SHIFT RN.
[2019-04-02 07:49] VITALS: BP 93/61
--- NOTE | 2019-04-02 08:00 | NUR ---
RECIEVED PATIENT CONFUSED AND CALLING OUT BUT WHEN ASKED WHAT SHE NEEDED SHE STATES SHE IS OK. LUNG ARE DIMINISHED AND PATIENT HAS BEEN RESTLESS AND KICKING OFF HER BLANKETS. SHE WAS ASKED IF SHE IS TOO HO AND SHE STATES SHE IS JUST FINE. PATIENT HAS BEEN WITH LOW BP AND HELD THE BP MEDICATIONS THIS AM. PATIENT HAS IV INTACT AND WITH CENTRAL LINE TO THE RIGHT GROIN IN PLACE. SHE HAS A WILLIS TO GRAVITY AND PATIENT WITH TRACE EDEMA TO [facility] LOWER EXTREMIES AND ECCYMOSIS TO THE UPPER EXTREMITIES AND DRESSING INTACT THE UPPER ARM COVERING A SKIN TEAR. SHE HAS SOME REDNESS TO THE GROIN AREA AND Z GAURD IS BEING APPLIED. PATIENT AHS BEEN BEDRIDDEN AND WITH GENEARL WEAKNESS NOTED SHE IS FOR TRANSFER TO SNF TODAY AND WILLIS AND CENTRAL LINE TO BE REMOVED. PATIENT IS AWARE AND THE SON IS AGREEABLE. WILL CALL IN REPORT INDICATED.
[2019-04-02 08:02] LABS: CARBON DIOXIDE 25.7 mmol/L (21-32); CHLORIDE SERUM 108 mmol/L (98-107); GLUCOSE SERUM 71 mg/dL (74-106); POTASSIUM SERUM 4.1 mmol/L (3.5-5.1); SODIUM SERUM 145 mmol/L (136-145)
[2019-04-02 08:04] LABS: CALCIUM 8.9 mg/dL (8.5-10.1); MAGNESIUM 2.1 mg/dL (1.8-2.4)
[2019-04-02 08:08] LABS: RED CELL DISTRIBUTION WIDTH 24.7 % (11.5-14.5)
[2019-04-02 09:18] VITALS: BP 128/74
[2019-04-02 09:51] LABS: MONOCYTE 3 % (0-7); SEGMENTED NEUTROPHILS 90 % (37-75)
[2019-04-02 09:52] LABS: BAND NEUTROPHIL 1 % (0-10); BASOPHIL 0 % (0-2); MYELOCYTE 1 % (0-2)
[2019-04-02 09:53] LABS: PLATELET MORPHOLOGY PLATELETS NORMAL; rbc morphology (normal/abnorm) ABNORMAL (NORMAL); target cell (codocyte) 1+
--- NOTE | 2019-04-02 10:18 | NUR ---
[place] NOW FOUR TIMES FOR REPORT AND FINALLY STAFF ANSWERED. GAVE REPORT INDICATED.
--- NOTE | 2019-04-02 10:30 | NUR ---
GAVE REPORT TO THE STAFF AT THE SNF AND THEY WILL CALL AND VERIFY WITH THE ADMISSION STAFF [place]. ADVISED THIS STAFF SPOKE WITH HER ON THE PHONE. GUSTAVO AT [facility] DID NOT KNOW APPARENTLY ABOUT THE ADMISSION TODAY.
--- NOTE | 2019-04-02 11:56 | NUR ---
GAVE REPORT THE STAFF AT [facility]. REMOVED THE CENTRAL LINE CHANGED THE DRESSING THE SKIN TEAR TO THE UPPER LEFT ARM AND WILLIS REMOVED WELL. TOLERATED WELL. PATIENT HAS BEEN PICKED UP FOR TRANSER AND IS IN NO ACUTE DISTRESS AT THIS TIME.
== END 2019-04-02 11:38 | DRG 871 ==
LOC: ED 03:56 → IC 05:49 → DU 05:49 → IC 06:32 → DU 03-26 18:41
PROVIDERS: Emergency Medicine; General Practice; Internal Medicine Nephrology; ADMIT Internal Medicine
PROC: 06HY33Z Insertion of Infusion Device into Lower Vein, Percutaneous Approach (ICD-10-PCS; principal; 2019-03-23)
PROC: 5A2204Z Restoration of Cardiac Rhythm, Single (ICD-10-PCS; 2019-03-23)
DX: A41.9 Sepsis, unspecified organism (principal); R65.21 Severe sepsis with septic shock; J18.9 Pneumonia, unspecified organism; J96.01 Acute respiratory failure with hypoxia; N17.0 Acute kidney failure with tubular necrosis; E43 Unspecified severe protein-calorie malnutrition; I50.33 Acute on chronic diastolic (congestive) heart failure; J44.1 Chronic obstructive pulmonary disease with (acute) exacerbation; I42.9 Cardiomyopathy, unspecified; E86.0 Dehydration; E83.51 Hypocalcemia; I48.91 Unspecified atrial fibrillation; D63.8 Anemia in other chronic diseases classified elsewhere; Z99.81 Dependence on supplemental oxygen; Z68.25 Body mass index [BMI] 25.0-25.9, adult; Z85.3 Personal history of malignant neoplasm of breast; Z66 Do not resuscitate
CPT/HCPCS: 36600; 82962; 83880; 84439; 97110-GP; 97530-GP; A4628; C9113; G0378; J0282; J1160; J1644; J1940; J1956; J2270; J3370; J3490; J7030; J7050; J7620; P9047; Q0092